=== PATIENT | female | born 1955 | race Caucasian/White ===

== ENCOUNTER → 2020-06-30 13:50 | Outpatient (CLI) | payer BC, SELFPAY ==
--- NOTE | ~2020-06-30 | MM_ITS ---
EXAMINATION: MM screening [facility] BI w livan HISTORY: Screening mammogram TECHNIQUE: Craniocaudal and mediolateral oblique 3-D tomosynthesis images were obtained and synthetic 2-D images were generated. CAD analysis was submitted and interpreted. COMPARISON: 06/18/2019 diagnostic right digital mammogram 05/17/2018, 05/15/2017 bilateral digital screening mammogram examinations 06/12/2019 bilateral digital screening mammogram BREAST PARENCHYMAL COMPOSITION: The breasts are heterogeneously dense, which may obscure small masses . FINDINGS: There is chronic bilateral asymmetry secondary to prior bilateral breast reduction surgery. There is suggestion of possible spiculated lesion in the posterior upper outer right breast (MLO Livan synthesis image 29/104). Diagnostic right mammogram and right breast ultrasound examination are recom mended. Interval suspicious mass or new architectural distortion or malignant calcification, skin thi ckening or retraction is evident. There are scattered bilateral benign calcifications, including some calcified fat necrosis. IMPRESSION: 1. Suggestion of possible spiculated lesion in posterior upper outer right breast 2. Diagnostic right mammogram and right breast ultrasound examination are recommended. BI-RADS Category 0: Incomplete: Needs additional imaging evaluation. Reviewed, dictated and finalized at location A. IMPRESSION: 1. Suggestion of possible spiculated lesion in posterior upper outer right [address] 2. Diagnostic right mammogram and right breast ultrasound examination are recom mended. BI-RADS Category 0: Incomplete: Needs additional imaging evaluation.
== END ==
PROVIDERS: PCP Nurse Practitioner Family; Visit Provider Nurse Practitioner
DX: Z12.31 Encounter for screening mammogram for malignant neoplasm of breast (principal); R92.8 Other abnormal and inconclusive findings on diagnostic imaging of breast
CPT/HCPCS: 77063; 77067

== ENCOUNTER → 2020-07-14 08:45 | Outpatient (CLI) | payer MEDICARE, SELFPAY ==
--- NOTE | ~2020-07-14 | MMUS_ITS ---
EXAMINATION: MM diagnostic mammo unilat RT, US breast RT complete HISTORY: Follow-up right breast calcifications and asymmetry TECHNIQUE: Additional 3-D tomosynthesis images of the right breast were performed and synthetic 2-D i mages were generated. CAD analysis was submitted and interpreted. High resolution right breast ultras ound was performed. COMPARISON: Comparison to multiple prior studies sequentially, with oldest reviewed study dated 05/11. BREAST PARENCHYMAL COMPOSITION: The breasts are heterogenously dense, which may obscure small masses FINDINGS: MAMMOGRAPHIC FINDINGS: There are persistent asymmetries in the upper outer quadrant of the right breast, although no discret e mass or definite architectural distortion is seen. There are clustered nonspecific calcifications i n the central aspect of the right breast, likely due to fat necrosis from prior breast reduction surg kaia. ULTRASOUND: Right breast ultrasound: At 10:00, 9 cm from the nipple, there is an irregular shaped hypoechoic lesion with posterior shadowi ng measuring approximately 6 x 4 mm with antiparallel configuration. No internal vascularity. There a re multiple simple and complicated cysts throughout the remainder of the right breast, largest at 6:0 0 measuring 1.5 cm. IMPRESSION: 1. Irregular shaped 6 mm right breast mass at 10:00, 9 cm from the nipple. 2. Ultrasound-guided right breast biopsy recommended. BI-RADS category 4, suspicious findings. Reviewed, dictated and finalized at location A. IMPRESSION: 1. Irregular shaped 6 mm right breast mass at 10:00, 9 cm from the nipple. 2. Ultrasound-guided right breast biopsy recommended. BI-RADS category 4, suspicious findings.
== END ==
PROVIDERS: Visit Provider Obstetrics & Gynecology Gynecology
DX: R92.8 Other abnormal and inconclusive findings on diagnostic imaging of breast (principal)
CPT/HCPCS: 76641; 77065

== ENCOUNTER 2022-04-08 08:00 | Outpatient (CLI) | payer MEDICARE, SELFPAY ==
--- NOTE | 2022-04-08 08:53 | ECG_ITS ---
Measurements Intervals Rico Rate: 64 P: -19 SD: 169 QRS: 24 QRSD: 80 T: -11 QT: 399 QTc: 412 Interpretive Statements SINUS RHYTHM LOW QRS VOLTAGE IN PRECORDIAL LEADS BORDERLINE ST-T WAVE ABNORMALITY- INFERIOR LEADS BASELINE ARTIFACT- AVL BORDERLINE ECG Electronically Signed On 04-08-2022 17:08:57 CDT by Seymour Hartley D.O.
[2022-04-08 09:27] LABS: Basophils Absolute Auto 0.1 K/mm3 (0.0-0.1); Basophils Percent Auto 1.2 % (0.2-1.2); Eosinophils Absolute Auto 0.1 K/mm3 (0-0.3); Eosinophils Percent Auto 2.8 % (0-4.4); Hematocrit 42.5 % (37.0-47.0); Hemoglobin 14.3 g/dL (12.0-15.0); Immature Granulocyte Absolute 0.01 K/mm3 (0.00-0.031); Immature Granulocyte Percent A 0.2 % (0-0.5); Lymphocytes Absolute Auto 1.25 K/mm3 (0.9-3.2); Mean Corpuscular HGB Conc 33.6 g/dl (32-36); Mean Corpuscular Hemoglobin 31.6 pg (26-34); Mean Platelet Volume 11.3 fl (7.4-10.4); Monocytes Absolute Auto 0.4 K/mm3 (0.1-0.6); Monocytes Percent Auto 8.8 % (2.6-8.5); Neutrophils Absolute Auto 3.1 K/mm3 (1.3-6.7); Platelet Count Result 186 k/mm3 (150-375); Red Blood Count 4.52 M/mm3 (4.2-5.4); Red Cell Distribution Width 13.5 % (11.5-14.5)
[2022-04-08 09:41] LABS: Albumin Level 4.5 g/dL (3.5-5.1); Anion Gap 7 mmol/L (8-16); Blood Urea Nitrogen 21 mg/dL (7-17); Calcium 9.4 mg/dL (8.4-10.2); Carbon Dioxide 31 mmol/L (22-30); Chloride 102 mmol/L (98-107); Estimated Glomerular Filt Rate 55; Glucose 114 mg/dL (65-110); Partial Thromboplastin Time 27.4 SECONDS (22.3-36.8); Potassium 4.7 mmol/L (3.4-5.0); Prothrombin Time 13.2 Seconds (11.1-14.7); Sodium 140 mmol/L (137-145)
[2022-04-08 09:43] LABS: Hemoglobin A1C 5.2 % (<5.7)
[2022-04-08 09:46] LABS: Urine Cotinine NEGATIVE
[2022-04-08 10:40] LABS: Appearance Urine Slightly Cloudy (Clear); Color Urine Yellow (Yellow); Glucose Urine UA Negative (Negative); Protein Urine Negative (Negative); Specific Grav Ur 1.025 (1.001-1.035)
[2022-04-08 10:41] LABS: Add Urine Microscopic? YES; Bilirubin Urine Negative (Negative); Blood Urine Negative (Negative); Ketones Urine Negative (Negative); Leukocyte Esterase Ur 1+ LEU/UL (Negative); Nitrate Urine Negative (Negative); Urobilinogen Urine 0.2 mg/dL (<2.0)
[2022-04-08 10:53] LABS: Bacteria Urine Trace /hpf; Mucus Urine Few /lpf; RBC Urine 0-2 /hpf (0-2); Squamous Epithelial Cell Urine Many /hpf (Few)
== END 2022-04-08 08:01 | disposition home or self-care (01) ==
LOC: ANHSURGERY 08:04
PROVIDERS: PCP Nurse Practitioner Family; Visit Provider Orthopaedic Surgery
DX: Z01.818 Encounter for other preprocedural examination (principal); M16.11 Unilateral primary osteoarthritis, right hip; Z51.81 Encounter for therapeutic drug level monitoring; Z79.899 Other long term (current) drug therapy
CPT/HCPCS: 80048; 80307; 81001; 82040; 83036; 85025; 85610; 85730; 87081; 87086; 87088; 93005

== ENCOUNTER 2022-04-26 00:02 | Day surgery (SDC) | payer MEDICARE, SELFPAY ==
[2022-04-08 08:11] VITALS: BMI 39.2
[2022-04-08 08:22] VITALS: BP 177/86; PULSE 71; RESP 16; TEMP 36.9; O2SAT 98
--- NOTE | 2022-04-08 08:30 | PC.NURSE ---
Addendum entered by Loretta Spears RN 04/08/22 08:46: HOLD DICLOFENAC 7 DAYS PRE-OP, LAST DOSE 04/19/22. Original Note: Report to the Outpatient Waiting Room, entrance under the radisson pavilion located off [facility], at time _9:00AM on date __04/26/22 . OR Time: __11:00AM . - You and your visitor will be asked a series of questions to screen for COVID 19 for your protection. - Only one visitor is allowed at this time. - The patient visitor is requested to leave or wait in car when not with patient. - A mask is required within the hospital. Patients may have clear liquids (water, carbonated beverages, clear teas, apple juice) until 3 hours prior to surgery with a maximum of 20 ounces. - No food from midnight until time of surgery - Infants may have breast milk until 4 hours before surgery, infant formula 6 hours prior to surgery. - Children will be allowed to drink immediately following surgery. If applicable, please bring a bottle or sippy cup to assist with drinking. Juice, water, soda, and popsicles are readily available. For infants on formula, please bring formula the day of surgery. Pacifiers are allowed. Take the following medications with a SIP of water the morning of surgery: NONE Medications to discontinue per physician ____HOLD ALL VITAMINS/SUPPLEMENTS 7 DAYS PRE-OP Date to take last dose 04/19/22 Please no make-up, nail greenlandic, hairspray, perfume, deodorant, or body powder the day of surgery. No jewelry (including any body piercings) or valuables the day of surgery, leave them at home. Please take a shower or bath the night before, or the morning of, surgery with an antibacterial soap. Wear comfortable, loose fitting clothing. Children are encouraged to wear pajamas. - Jewelry must be removed prior to entering the operating room. Rings and piercings that are not removed may be cut off. - The hospital will not accept responsibility for valuables. - Please leave all valuables, including medications, at home the day of surgery. *HIBICLENS PER DR NAGEL If you are going home after surgery, a licensed concrete mixer truck driver must drive you home. - NO public transportation without another adult. - We recommend that an adult stay with you for 24 hours following discharge. - We also recommend that you do not drive, make important decision, drink alcoholic beverages, or take any drugs that were not prescribed by your health care provider for at least 24 hours after your discharge time. For Pediatric surgeries, we recommend two adults accompany the child home (only one inside the building at this time). Follow any additional instructions given to you from your surgeon. If you or anyone in your household have experienced Covid symptoms in the past week, please notify your surgeon or the nurse liaison at the phone number below for possible testing. Telephone instructions given to __PATIENT and asked if any additional questions and then verbalized understanding. Patient advised to call surgeon office or pre surgery nurse liaison [phone] if any additional questions.
--- NOTE | 2022-04-25 13:05 | WPDANESEPPF ---
Anes - Initial Pre Proc Eval Procedure: Operation Date: 04/26/22 07:30 Proposed Procedures p Right Total Hip Arthroplasty - Mukesh Silva MD Date/Time: 04/25/22 13:05 Surgeon: Mukesh Silva MD Pre Op Diagnosis: Rt Hip DJD Patient Data Age: 66 Gender: F Height: 1.71 m Weight: 115.2 kg Last Vital Signs Temp 36.9 C 04/08/22 08:22 Pulse 71 04/08/22 08:22 Resp 16 04/08/22 08:22 BP 177/86 H 04/08/22 08:22 Pulse Ox 98 04/08/22 08:22 O2 Del Method Room Air 04/08/22 08:22 Allergies Allergy/AdvReac Type Severity Reaction Status Date / Time No Known Drug Allergies Allergy Unknown Unverified 04/25/22 09:41 Home Medications Medication Instructions Recorded Confirmed Type diclofenac sodium 75 mg 75 mg PO BID 03/10/22 04/08/22 History tablet,delayed release cetirizine 10 mg capsule (Zyrtec) 10 mg PO DAILY PRN Sinus Symptoms 04/08/22 04/08/22 History alcaraz juice (Dark Alcaraz 1 ea PO BID 04/08/22 04/08/22 History Concentrate oral concentrate) ergocalciferol (vitamin D2) 1,250 1 cap PO DAILY 04/08/22 04/08/22 History mcg (50,000 unit) capsule estradiol 0.5 mg tablet 0.5 tablet PO DAILY 04/08/22 04/08/22 History hydrochlorothiazide 12.5 mg capsule 1 cap PO QAM 04/08/22 04/08/22 History losartan 50 mg tablet 1 tablet PO QAM 04/08/22 04/08/22 History magnesium oxide 400 mg PO DAILY 04/08/22 04/08/22 History medroxyprogesterone 2.5 mg tablet 1 tablet PO DAILY 04/08/22 04/08/22 History sulfamethoxazole 800 1 tablet PO Q12H #20 tabs 04/12/22 Rx mg-trimethoprim 160 mg tablet (Bactrim DS) Results Review: All pre-operative results and documents have been reviewed as part of the pre-operative evaluation. [facility] Past Medical History Medical History (Updated 04/25/22 @ 13:07 by Jaime Koch MD) Hip pain HTN (hypertension) Obesity Osteoarthritis Vision loss Surgical History Surgical History (Updated 04/06/22 @ 09:51 by Shannon Maddox MA) History of toe surgery Zuleyma Mazariegos, Dr. Steven Family History Family History Mother Carcinoma of colon Other Cerebrovascular accident Family history of arthritis Family history of malignant neoplasm Social History Social History (Updated 03/10/22 @ 13:06 by Thalia Shook MA) Smoking status: Never smoker Alcohol intake: current Substance use: never Additional living arrangements comments: [facility] Additional occupation/education comments: [employer] Gender identity (if verbalized by the patient): Female Spiritual care concerns: No Anes - Eval Final PreProcedure Day of Procedure 04/25/22 13:05 Patient weight: obese Heart: regular rate and rhythm Lungs: clear to auscultation and normal air movement Airway: Mallampati scale class II Neurological: alert and oriented Last oral intake: >/= 8 hours ASA classification: III Emergent: no Anesthetic plan: proceed Anesthesia type and monitoring: general ETT Results Review: All pre-operative results and documents have been reviewed as part of the pre-operative evaluation. Informed Consent: The patient's anesthetic plan and its attendant risks and benefits were discussed with the patient/family/POA. Questions were solicited and answers provided to the satisfaction of the patient/family/POA.
[2022-04-26] VITALS (13 sets, daily range): BP systolic 113–152; BP diastolic 48–73; PULSE 57–80; RESP 12–20; TEMP 36.2–37.3; O2SAT 95–100
--- NOTE | ~2022-04-26 | XR_ITS ---
EXAMINATION: XR hip RT min 2V DATE: 04/26/2022 10:50 INDICATION: Right total hip arthroplasty. Postop. TECHNIQUE: 2 views of right hip were obtained. COMPARISON: Right hip radiographs 03/10/2022 FINDINGS: There is a total right hip arthroplasty in near-anatomic alignment. No fracture. There is g as in the soft tissues, consistent with recent surgery. There is severe lumbar spondylosis. IMPRESSION: 1. Total right hip arthroplasty in near-anatomic alignment. Reviewed, dictated and finalized at location B.
[2022-04-26] MEDS: ACETAMINOPHEN 500 MG TABLET 1000 MG PO (06:29)
[2022-04-26] MEDS: LACTATED RINGERS 1,000 ML 30 ML IV CONT ×2 (06:35→10:33)
--- NOTE | 2022-04-26 06:57 | SUR.PREOP ---
0657-TRANEXAMIC ACID TO BE SENT TO OR VS STARTED IN PREOP PER DR. SALEH REQUEST.
--- NOTE | 2022-04-26 07:11 | PM.CNOR ---
Assessment and Plan Assessment and plan (1) Osteoarthritis: Code(s): M19.90 - Unspecified osteoarthritis, unspecified site Status: Acute (2) Degenerative joint disease (DJD) of hip: Qualifiers: Osteoarthritis type: primary Laterality: right Qualified Code(s): M16.11 - Unilateral primary osteoarthritis, right hip Code(s): M16.9 - Osteoarthritis of hip, unspecified Status: Acute Plan ALY IS HERE FOR RIGHT TOTAL HIP REPLACEMENT. DISCUSSED NONOPERATIVE AND OPERATIVE TREATMENT OPTIONS WITH THE PATIENT. THE PATIENT'S QUESTIONS WERE ANSWERED. THE PATIENT DESIRES OPERATIVE TREATMENT. DISCUSSED ____R THA . RISKS OF SURGERY INCLUDING BUT NOT LIMITED TO NEUROVASCULAR DAMAGE, WOUND COMPLICATIONS, BLOOD CLOT, PULMONARY EMBOLUS, STROKE, CA, ANESTHETIC RISKS UP TO AND INCLUDING WERE REVIEWED. CONTINUED PAIN AND POSSIBLE DYSFUNCTION WERE EXPLAINED. NO GUARANTEES WERE OFFERED. THE PATIENT UNDERSTANDS AND WISHES TO PROCEED. History of Present Illness HPI Consult date: 04/26/22 Chief complaint: Rt Hip DJD Narrative: Pt presents with Right hip pain that has been chronic, nontraumatic. Her pain is dependent on her activity. She states when she is lying on her back she has anterior hip/groin pain which radiates into the thigh. When she is ambulating her pain is diffuse, throughout the joint. She has frequent night pain, as she is only able to lay her back when then causes groin pain. She is not ambulating with AD. She takes Diclofenac tablets, which do relieve her pain. Pt has h/o Left LATHA in 2016 Involved hip: right Onset: gradual Character: aching, weakness and other (catching) Timing of pain: intermittent Exacerbated by: weight bearing, squatting, running, rotational activities and prolonged activity Relieved by: NSAIDs, ice and rest Associated symptoms: Reports leg pain at rest History of occupational/recreational activity with repetitive movement: No History of prior hip injury: No Review of Systems Review of Systems: All systems reviewed & are unremarkable except as noted in HPI and below Constitutional: Constitutional: Reports no additional constitutional complaints Eyes: Eyes: Reports no additional eye complaints ENT: Reports system reviewed and no additional complaints, except as documented Respiratory: Respiratory: Reports no additional respiratory complaints Gastrointestinal: Gastrointestinal: Reports no additional gastrointestinal complaints Musculoskeletal: Musculoskeletal: Reports no additional musculoskeletal complaints Integumentary/Breasts: Skin/Breast: Reports system reviewed and no additional complaints, except as docu Neurologic: Reports system reviewed and no additional complaints, except as documented Psychiatric: Psychiatric: Reports no additional psychiatric complaints Endocrine: Endocrine: Reports no additional endocrine complaints Hematologic/Lymphatic: Hematologic/Lymphatic: Reports no additional hematologic/lymphatic complaints Allergic/Immunologic: Allergic/Immunologic: Reports no additional allergic/immunologic complaints PMFSH Past Medical History Medical History Hip pain HTN (hypertension) Obesity Osteoarthritis Vision loss Surgical History Surgical History History of toe surgery Zuleyma Mazariegos, Dr. Steven Family History Family History Mother Carcinoma of colon Other Cerebrovascular accident Family history of arthritis Family history of malignant neoplasm Social History Social History Smoking status: Never smoker Alcohol intake: current Substance use: never Living arrangements: with family Additional living arrangements comments: HUSB Additional occupation/education comments: [employer] Gender kelly
--- NOTE | 2022-04-26 07:17 | WPDHPUPDATE1 ---
History and Physical Update Update Date/Time: 04/26/22 07:17 History and Physical has been reviewed, including an updated exam of the patient. There are NO changes in the patient's condition. Risks, benefits, and alternatives have been discussed and questions answered. Patient agrees to proceed with procedure.
--- NOTE | 2022-04-26 07:20 | WPDANESEPPF ---
Anes - Initial Pre Proc Eval Procedure: Operation Date: 04/26/22 07:30 Proposed Procedures p Right Total Hip Arthroplasty - Mukesh Silva MD Date/Time: 04/26/22 07:20 Surgeon: Mukesh Silva MD Pre Op Diagnosis: Rt Hip DJD Patient Data Age: 66 Gender: F Height: 1.71 m Weight: 111.8 kg Last Vital Signs Temp 97.1 F L 04/26/22 06:15 Pulse 77 04/26/22 06:15 Resp 20 04/26/22 06:15 BP 133/69 04/26/22 06:15 Pulse Ox 98 04/26/22 06:15 O2 Del Method Room Air 04/26/22 06:15 Allergies Allergy/AdvReac Type Severity Reaction Status Date / Time No Known Allergies Allergy Verified 04/26/22 06:13 Home Medications Medication Instructions Recorded Confirmed Type diclofenac sodium 75 mg 75 mg PO BID 03/10/22 04/26/22 History tablet,delayed release cetirizine 10 mg capsule (Zyrtec) 10 mg PO DAILY PRN Sinus Symptoms 04/08/22 04/26/22 History alcaraz juice (Dark Alcaraz 1 ea PO BID 04/08/22 04/26/22 History Concentrate oral concentrate) ergocalciferol (vitamin D2) 1,250 1 cap PO DAILY 04/08/22 04/26/22 History mcg (50,000 unit) capsule estradiol 0.5 mg tablet 0.5 tablet PO DAILY 04/08/22 04/26/22 History hydrochlorothiazide 12.5 mg capsule 1 cap PO QAM 04/08/22 04/26/22 History losartan 50 mg tablet 1 tablet PO QAM 04/08/22 04/26/22 History magnesium oxide 400 mg PO DAILY 04/08/22 04/26/22 History medroxyprogesterone 2.5 mg tablet 1 tablet PO DAILY 04/08/22 04/26/22 History sulfamethoxazole 800 1 tablet PO Q12H #20 tabs 04/12/22 04/26/22 Rx mg-trimethoprim 160 mg tablet (Bactrim DS) Laboratory Tests 04/26/22 06:39 Blood Type O Negative Antibody Screen Pending Patient hx anesthesia problems: post op nausea/vomiting Family hx anesthesia problems: none Results Review: All pre-operative results and documents have been reviewed as part of the pre-operative evaluation. [facility] Past Medical History Medical History Hip pain HTN (hypertension) Obesity Osteoarthritis Vision loss Surgical History Surgical History History of toe surgery Yair, Zuleyma, Dr. Steven Family History Family History Mother Carcinoma of colon Other Cerebrovascular accident Family history of arthritis Family history of malignant neoplasm Social History Social History Smoking status: Never smoker Alcohol intake: current Substance use: never Living arrangements: with family Additional living arrangements comments: HUSB Additional occupation/education comments: [employer] Gender identity (if verbalized by the patient): Female Spiritual care concerns: No Anes - Eval Final PreProcedure Day of Procedure 04/26/22 07:20 Patient weight: obese Heart: regular rate and rhythm Lungs: clear to auscultation Airway: Mallampati scale class III Neurological: alert and oriented Last oral intake: >/= 8 hours ASA classification: III Emergent: no Anesthetic plan: proceed Anesthesia type and monitoring: general ETT and standard monitoring Results Review: All pre-operative results and documents have been reviewed as part of the pre-operative evaluation. Informed Consent: The patient's anesthetic plan and its attendant risks and benefits were discussed with the patient/family/POA. Questions were solicited and answers provided to the satisfaction of the patient/family/POA.
[2022-04-26] MEDS: SCOPOLAMINE 1.5 MG PATCH TRANSDERM (07:26)
[2022-04-26] MEDS: ceFAZolin 2 GM/D5W 50 ML 2 GM/50 ML BAG IVPB ×3 (07:29→22:12)
[2022-04-26] MEDS: TRANEXAMIC ACID 1,000MG/ISO100 1,000 MG/100 ML BAG 200 MG IVPB (07:29)
[2022-04-26] MEDS: TRANEXAMIC ACID 1,000 MG/10 ML AMPUL 1000 MG IV PUSH (09:25)
--- NOTE | 2022-04-26 11:02 | W.PM.PROC2 ---
Procedure Note - Detailed Date of Procedure 04/26/22 Pre-op Diagnosis Rt Hip DJD Post-op Diagnosis Same Procedure Performed R LATHA Surgeon Mukesh Silva MD Anesthesia General Description of Procedure THE PATIENT WAS TAKEN TO THE OPERATING ROOM IN STABLE CONDITION AND WAS PLACED IN THE LATERAL DECUBITUS AND THE RIGHT LOWER EXTREMITY WAS PREPPED AND DRAPED IN THE STERILE FASHION. INCISION WAS MADE IN THE POSTERIOR LATERAL SIDE OF THE HIP, DOWN TO THE FASCIA LAYER. THE FASCIA WAS INCISED. THE HIP WAS EXPOSED. THE SHORT EXTERNAL ROTATORS WERE EXPOSED. THE SCIATIC NERVE WAS IDENTIFIED. THERE WAS A HIGH BIFURCATION OF THE NERVE. INCISION WAS MADE THROUGH THE SORT EXTERNAL ROTATORS AND THE CAPSULE OF THE HIP JOINT. THE HIP WAS DISLOCATED. AN OSTEOTOMY WAS MADE TO THE FEMORAL NECK ABOUT 1 CM PROXIMAL TO THE LESSER TROCHANTER. THE ACETABULUM WAS EXPOSED. THERE WAS SEVERE DJD SEEN. BEGINNING WITH A 44 REAMER THE ACETABULUM WAS REAMED TO 51 MM. A 51 MM TRIAL WAS PLACED IN 35 DEG OF ABDUCTION AND ANTEVERSION WAS IN ALIGNMENT WITH THE TRANS ACETABULAR LIGAMENT. THE FIT WAS EXCELLENT. THE TRIAL WAS REMOVED. A 52 MM BIOMET G7 COMPONENT WAS THEN TAPPED IN TO PLACE IN 35 DEG OF ABDUCTION AND ANTEVERSION IN ALIGNMENT WITH THE TRANSVERSE ACETABULAR LIGAMENT. THE FIT WAS EXCELLENT. THE ACETABULAR LINER WAS PLACED AND CHECKED FOR STABILITY. NEXT THE FEMUR WAS PREPARED WITH INITIAL CANAL FINDER THEN SEQUENTIAL BROACHING WITH A TAPERLOC HIP SYSTEM, UNTIL A 9 BROACH FIT WELL IN 15 OF ANTEVERSION. A +0 STANDARD OFFSET NECK WITH 36 MM HEAD TRIAL WAS PLACED. THE SHUCK TEST WAS EXCELLENT AND THE STABILITY IN FLEXION AND ROTATION WAS EXCELLENT. LEG LENGTHS WERE GROSSLY EQUAL. TRIALS WERE REMOVED. A BIOMET TAPERLOC 9 STEM WAS PLACED WITH A STANDARD OFFSET NECK THE FIT WAS EXCELLENT IN 15 DEG OF ANTEVERSION. A +0 CERAMIC 36 MM FEMORAL HEAD WAS PLACED. THE HIP WAS TRIALED AND THE STABILITY WAS EXCELLENT WERE THE LEG LENGTHS AND THE SHUCK TEST. THE WOUND WAS IRRIGATED WITH STERILE BETADINE AND WATER FOR 3 MIN. THEN WASHED AGAIN. THE CAPSULE AND THE EXTERNAL ROTATORS WERE APPROXIMATED WITH NUMBER 1 VICRYL. THE FASCIA WITH No 2 QUIL AND THE SUB CUTANEOUS LAYER WITH 2-0 ABSORBABLE SUTURE WITH A RUNNING 3-0 SUBCUTICULAR LAYER WELL. DERMABOND WAS PLACED AND STERILE DRESSING WAS APPLIED. PATIENT WAS PLACED BACK ON TO THE SUPINE POSITION AND WAS EXTUBATED Estimated Blood Loss -200.0 Complications No immediate complications Condition Stable Disposition PACU
[2022-04-26] MEDS: fentaNYL CITRATE INJ (*CRX) 100 MCG/2 ML VIAL 25 MCG IV PUSH (11:03)
--- NOTE | 2022-04-26 12:02 | ADMGEN ---
This patient, Lakesha Dong, was admitted to Medical Room 245-01 via bed from surgery. Patient/family oriented to hospital policies and general routines including ID bracelet, bed and alarms, visiting hours, pain management, procedures, bathroom and other care routines, personal items, smoking policy, room service/diet, and visiting hours. Information on how to activate the Rapid Response Team has been discussed. Patient/Family are encouraged to report perceived risks to care and to ask questions if they do not understand what they are told or what they should do.
[2022-04-26] MEDS: KETOROLAC 15 MG/ML VIAL (*BKC) IV PUSH ×2 (16:00→22:07)
[2022-04-26] MEDS: HYDROcodone/acetaminophen (*CRX) 7.5-325 MG TABLET 1 TAB PO (18:42)
[2022-04-26] MEDS: FAMOTIDINE 20 MG TABLET PO (22:07)
[2022-04-26] MEDS: ASPIRIN 325 MG ENTERIC TABLET PO (22:07)
[2022-04-27 00:03] VITALS: BP 92/52; PULSE 72; RESP 20; TEMP 35.8; O2SAT 95
[2022-04-27 01:06] VITALS: BP 102/52
[2022-04-27] MEDS: KETOROLAC 15 MG/ML VIAL (*BKC) IV PUSH ×2 (04:00→09:02)
[2022-04-27 04:07] VITALS: BP 112/52; PULSE 72; RESP 20; TEMP 36.3; O2SAT 97
[2022-04-27 05:36] LABS: Basophils Percent Auto 0.3 % (0.2-1.2); Eosinophils Percent Auto 0.2 % (0-4.4); Hematocrit 32.8 % (37.0-47.0); Hemoglobin 10.9 g/dL (12.0-15.0); Immature Granulocyte Absolute 0.08 K/mm3 (0.00-0.031); Immature Granulocyte Percent A 0.6 % (0-0.5); Lymphocytes Absolute Auto 1.41 K/mm3 (0.9-3.2); Lymphocytes Percent Auto 11.3 % (18.3-44.2); Mean Corpuscular HGB Conc 33.2 g/dl (32-36); Mean Corpuscular Hemoglobin 31.5 pg (26-34); Mean Corpuscular Volume 94.8 fl (80-100); Mean Platelet Volume 11.9 fl (7.4-10.4); Monocytes Absolute Auto 1.4 K/mm3 (0.1-0.6); Neutrophils Absolute Auto 9.6 K/mm3 (1.3-6.7); Neutrophils Percent Auto 76.6 % (45.5-73.1); Platelet Count Result 191 k/mm3 (150-375); Red Blood Count 3.46 M/mm3 (4.2-5.4); Red Cell Distribution Width 13.6 % (11.5-14.5); White Blood Count 12.5 K/mm3 (4.5-10.0)
[2022-04-27 05:44] LABS: Anion Gap 5 mmol/L (8-16); Blood Urea Nitrogen 20 mg/dL (7-17); Calcium 7.8 mg/dL (8.4-10.2); Carbon Dioxide 27 mmol/L (22-30); Chloride 98 mmol/L (98-107); Estimated CRCL calculation 64 ml/min; Estimated Glomerular Filt Rate 55; Glucose 126 mg/dL (65-110); Potassium 3.6 mmol/L (3.4-5.0); Sodium 130 mmol/L (137-145)
[2022-04-27] MEDS: ceFAZolin 2 GM/D5W 50 ML 2 GM/50 ML BAG IVPB (06:07)
--- NOTE | 2022-04-27 08:41 | P.PNAN_ITS ---
Anes - Prog Note Post-Op Date/Time: 04/27/22 08:41 Cardiovascular status: normal Respiratory status: normal Airway patency: baseline Mental status: baseline Post-Op hydration status: normal Vital Signs: Last Vital Signs Temp 36.3 C L 04/27/22 04:07 Pulse 72 04/27/22 04:07 Resp 20 04/27/22 04:07 BP 112/52 L 04/27/22 04:07 Pulse Ox 97 04/27/22 04:07 O2 Del Method Room Air 04/26/22 13:36 O2 Flow Rate 6 04/26/22 10:50 Pain Score (VAS): 3 I/O: Intake & Output 04/26/22 04/27/22 04/27/22 23:59 07:59 15:59 Intake Total 340 440 Output Total 0 Balance 340 440 Laboratory Tests 04/27/22 04:55 04/27/22 04:55 04/27/22 04/27/22 04:55 04:55 WBC 12.5 H RBC 3.46 L Hgb 10.9 L D Hct 32.8 L MCV 94.8 MCH 31.5 MCHC 33.2 RDW 13.6 Plt Count 191 MPV 11.9 H Immature Gran % (Auto) 0.6 H Neut % (Auto) 76.6 H Lymph % (Auto) 11.3 L [place] % (Auto) 11.0 H Eos % (Auto) 0.2 Baso % (Auto) 0.3 Lymph # (Auto) 1.41 [place] # (Auto) 1.4 H Eos # (Auto) 0.0 Baso # (Auto) 0.0 Abs Immat Gran (auto) 0.08 H Absolute Neuts (auto) 9.6 H Absolute Nucleated RBC 0.0 Nucleated RBC % 0.0 Sodium 130 L Potassium 3.6 Chloride 98 Carbon Dioxide 27 Anion Gap 5 L BUN 20 H Creatinine 1.00 Estim Creat Clear Calc 64 Estimated GFR 55 L Glucose 126 H Calcium 7.8 L Post-procedural complaints: none Patient Feedback: Patient satisfied with anesthetic care.
[2022-04-27] MEDS: ASPIRIN 325 MG ENTERIC TABLET PO (09:01)
[2022-04-27] MEDS: MAGNESIUM OXIDE 400 MG TABLET PO (09:02)
[2022-04-27] MEDS: LOSARTAN POTASSIUM 50 MG TABLET PO (09:02)
[2022-04-27] MEDS: FAMOTIDINE 20 MG TABLET PO (09:02)
[2022-04-27] MEDS: hydroCHLOROthiazide 12.5 MG CAPSULE PO (09:02)
[2022-04-27] MEDS: SENNA/DOCUSATE SODIUM TABLET 2 TAB PO (09:02)
[2022-04-27] MEDS: polyethylene glycoL 3350 17 GM POWD.PACK PO (09:02)
[2022-04-27 09:06] VITALS: BP 104/56; PULSE 68; RESP 16; TEMP 36.5; O2SAT 100
[2022-04-27 10:30] VITALS: BP 103/58; PULSE 74; RESP 20; TEMP 36.2; O2SAT 98
[2022-04-27 14:28] VITALS: BP 102/53; PULSE 67; RESP 18; TEMP 36.4; O2SAT 100
--- NOTE | 2022-04-27 15:36 | PM.PNORT ---
Progress Note: A&P Assessment and Plan (1) Degenerative joint disease (DJD) of hip: Qualifiers: Osteoarthritis type: primary Laterality: right Qualified Code(s): M16.11 - Unilateral primary osteoarthritis, right hip Code(s): M16.9 - Osteoarthritis of hip, unspecified Status: Acute Assessment and Plan: POD 1 DOING WELL AND HAS PASSED PT. HGB IS STABLE. SHE IS WANTING TO BE DISCHARGED TO HOME. SHE WILL F/U IN 3 WEEKS. (2) History of hip replacement: Qualifiers: Laterality: left Qualified Code(s): Z96.642 - Presence of left artificial hip joint Code(s): Z96.649 - Presence of unspecified artificial hip joint Status: Acute Subjective Subjective Date/Time Seen: 04/27/22 15:36 POD 1 DOING WELL. NO CALF PAIN. DOING WELL WITH PT Review of Systems Review of Systems: POD 1 DOING WELL. NO CALF PAIN. 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 Objective Data Vital Signs Vital Signs: Vital Signs - 24 hr 04/26/22 18:12 04/26/22 20:08 04/27/22 00:03 Temperature 36.9 C 37.3 C 35.8 C L Pulse Rate 80 79 72 Respiratory Rate 16 20 20 Blood Pressure 150/71 H 121/48 L 92/52 L Pulse Oximetry 99 98 95 Oxygen Delivery 04/27/22 01:06 04/27/22 04:07 04/27/22 09:06 Temperature 36.3 C L 36.5 C Pulse Rate 72 68 Respiratory Rate 20 16 Blood Pressure 102/52 L 112/52 L 104/56 L Pulse Oximetry 97 100 Oxygen Delivery 04/27/22 09:10 04/27/22 10:30 04/27/22 14:28 Temperature 36.2 C L 36.4 C L Pulse Rate 74 67 Respiratory Rate 20 18 Blood Pressure 103/58 L 102/53 L Pulse Oximetry 98 100 Oxygen Delivery Room Air Intake/Output Intake/Output: Intake & Output 04/24/22 04/25/22 04/26/22 04/27/22 23:59 23:59 23:59 23:59 Intake Total 840 920 Output Total 0 Balance 840 920 Meds/Results Medications: Active Medications Generic Name Dose Route Start Last Admin Trade Name Freq PRN Reason Stop Dose Admin Acetaminophen 650 mg 04/26/22 11:55 Acetaminophen 325 Mg Tablet PO Q6H PRN Mild Pain (1-3) or Fever Hydrocodone Bitart/Acetaminophen 1 tab 04/26/22 11:55 04/26/22 18:42 Hydrocodone/Acetaminophen (*Crx) 7.5-325 Mg Tablet PO 1 tab Q3H PRN Administration Pain Rated 4-6 Aspirin 325 mg 04/26/22 21:00 04/27/22 09:01 Aspirin 325 Mg Enteric Tablet PO 325 mg Q12HR DEBORAH Administration Diazepam 5 mg 04/26/22 11:55 Diazepam (*Crx) 5 Mg Tablet PO Q6H PRN Anxiety/Muscle Spasm Ergocalciferol 50,000 unit 04/28/22 09:00 Ergocalciferol 50,000 Unit Capsule PO Th@0900 DEBORAH Famotidine 20 mg 04/26/22 21:00 04/27/22 09:02 Famotidine 20 Mg Tablet PO 20 mg Q12HR DEBORAH Administration Hydrochlorothiazide 12.5 mg 04/27/22 09:00 04/27/22 09:02 Hydrochlorothiazide 12.5 Mg Capsule PO 12.5 mg QAM DEBORAH Administration Hydroxyzine HCl 50 mg 04/26/22 11:55 Hydroxyzine Hcl 25 Mg Tablet PO Q4H PRN Itching Ketorolac Tromethamine 15 mg 04/26/22 22:00 04/27/22 09:02 Ketorolac 15 Mg/Ml Vial (*Bkc) IV PUSH 04/27/22 16:01 15 mg Q6H DEBORAH Administration Loratadine 10 mg 04/26/22 11:55 Loratadine 10 Mg Tablet PO DAILY PRN Sinus Symptoms Losartan Potassium 50 mg 04/27/22 09:00 04/27/22 09:02 Losartan Potassium 50 Mg Tablet PO 50 mg QAM DEBORAH Administration Magnesium Oxide 400 mg 04/27/22 09:00 04/27/22 09:02 Magnesium Oxide 400 Mg Tablet PO 400 mg DAILY DEBORAH Administration Morphine Sulfate 3 mg 04/26/22 11:55 Morphine Sulfate (*Crx) 4 Mg/Ml Inj IV PUSH Q3H PRN Pain Rated 7-10 Naloxone HCl 0.1 mg 04/26/22 11:55 Naloxone Hcl 0.4 Mg/Ml Vial IV PUSH Q2M PRN Opiate Reversal Ondansetron HCl 4 mg 04/26/22 11:55 Ondansetron Inj 4 Mg/2 Ml Vial IV PUSH Q4H PRN Nausea And Vomiting Polyethylene Glycol 17 gm 04/27/22 09:00 04/27/22 09:02 Polyet
--- NOTE | 2022-04-27 15:41 | PM.DS ---
DS: Admitting Diagnosis Discharge Date 04/27/22 Admitting Diagnosis R HIP DJD DS: Discharge Diagnosis Discharge Diagnosis (1) History of hip replacement: Qualifiers: Laterality: left Qualified Code(s): Z96.642 - Presence of left artificial hip joint Code(s): Z96.649 - Presence of unspecified artificial hip joint Status: Acute DS: Summary Hospital Course Reason for hospitalization: R LATHA Hospital Course: PATIENT WAS ADMITTED S/P TOTAL HIP ARTHROPLASTY FOR POSTOPERATIVE MEDICAL MANAGEMENT, PAIN CONTROL AND MOBILIZATION WITH PHYSICAL AND OCCUPATIONAL THERAPY. THE PATIENT PROGRESSED WELL WITH PT/OT. LABS AND VITALS REMAINED STABLE AND PAIN WELL CONTROLLED. THE PATIENT HAS BEEN CLEARED TO BE DISCHARGED HOME. FOLLOW UP APPOINTMENT SCHEDULED. DISCHARGE INSTRUCTIONS DISCUSSED AT LENGTH WITH THE PATIENT. MEDICATIONS REVIEWED. Time spent discussing smoking cessation with patient: 3 to 10 minutes Status at Discharge Functional status at discharge: uses cane/walker Time Spent with Patient Time attestation: Total time spent providing and/or coordinating discharge services: DS: Data Data Completed and Pending Labs on day of discharge: Labs from last 24 hours 04/27/22 04/27/22 04:55 04:55 WBC 12.5 H RBC 3.46 L Hgb 10.9 L D Hct 32.8 L MCV 94.8 MCH 31.5 MCHC 33.2 RDW 13.6 Plt Count 191 MPV 11.9 H Immature Gran % (Auto) 0.6 H Neut % (Auto) 76.6 H Lymph % (Auto) 11.3 L Crockett % (Auto) 11.0 H Eos % (Auto) 0.2 Baso % (Auto) 0.3 Lymph # (Auto) 1.41 Crockett # (Auto) 1.4 H Eos # (Auto) 0.0 Baso # (Auto) 0.0 Abs Immat Gran (auto) 0.08 H Absolute Neuts (auto) 9.6 H Absolute Nucleated RBC 0.0 Nucleated RBC % 0.0 Sodium 130 L Potassium 3.6 Chloride 98 Carbon Dioxide 27 Anion Gap 5 L BUN 20 H Creatinine 1.00 Estim Creat Clear Calc 64 Estimated GFR 55 L Glucose 126 H Calcium 7.8 L Procedures/Treatments: R LATHA Discharge Plan Discharge Patient Disposition: Home Health Service Discharge Instructions: Remove the Scopolamine patch that was placed behind your ear in 72 hours or less. Wash your hands after touching. Per Care Coordination: [facility] will contact you prior to their first visit. [facility] can be contacted at [phone]. [facility] will follow for RN and PT/OT eval and treat. Patient Instructions: Antibiotic Form, Total Hip Replacement (DC) Stand Alone Forms: General Discharge Information, General Discharge Instructions Follow-up/Referrals: Mukesh Silva MD [Physician] - 3 Weeks Discharge Medications: New aspirin 325 mg Tablet,Delayed Release (Dr/Ec) 325 mg PO Q12HR 14 Days Qty: 28 0RF oxycodone-acetaminophen [Percocet] 5-325 mg tablet 1 tablet PO Q6H PRN (Reason: pain) Qty: 50 0RF Continued diclofenac sodium 75 mg tablet,delayed release (DR/EC) 75 mg PO BID estradiol 0.5 mg tablet 0.5 tablet PO DAILY losartan 50 mg tablet 1 tablet PO QAM medroxyprogesterone 2.5 mg tablet 1 tablet PO DAILY hydrochlorothiazide 12.5 mg capsule 1 cap PO QAM ergocalciferol (vitamin D2) 1,250 mcg (50,000 unit) capsule 1 cap PO DAILY Zyrtec 10 mg Capsule 10 mg PO DAILY PRN (Reason: Sinus Symptoms) magnesium oxide 400 mg magnesium Capsule 400 mg PO DAILY Dark Alcaraz Concentrate Concentrate 1 ea PO BID Quality VTE Prophylaxis VTE prophylaxis: pharmacologic ordered
[2022-04-27] MEDS: HYDROcodone/acetaminophen (*CRX) 7.5-325 MG TABLET 1 TAB PO (16:10)
== END 2022-04-27 16:27 | disposition home health service (06) ==
LOC: ANHSURGERY 07:28 → ANH2MED 11:57
PROVIDERS: PCP Nurse Practitioner Family; Visit Provider Orthopaedic Surgery
PROC: (CPT 27130; principal; 2022-04-26 07:30)
DX: M16.11 Unilateral primary osteoarthritis, right hip (principal); I10 Essential (primary) hypertension; E66.9 Obesity, unspecified; Z68.38 Body mass index [BMI] 38.0-38.9, adult
CPT/HCPCS: 27130; 36415; 73502; 80048; 85025; 86850; 86900; 86901; 97110; 97161; 97165; 97530; 97535; A9270; C1776; J0171; J0690; J1100; J1170; J1885; J2250; J2270; J2370; J2405; J2704; J2710; J2795; J3010; J7120

== ENCOUNTER 2024-07-11 09:19 | Outpatient (CLI) | payer MEDICARE, SELFPAY ==
--- NOTE | ~2024-07-11 | US_ITS ---
EXAMINATION: US abdomen limited DATE: 07/11/2024 10:06 INDICATION: Abnormal levels of other serum enzymes. TECHNIQUE: Multiple grayscale and Doppler ultrasound images of the abdomen were obtained. COMPARISON: None FINDINGS: The visualized portions of the head, body, and tail of the pancreas are normal. The liver i s normal without focal lesion. No liver surface nodularity. There is normal flow in main portal vein. The gallbladder is absent. The common duct is normal and measures 5 mm. IMPRESSION: 1. Normal right upper quadrant ultrasound status post cholecystectomy. Reviewed, dictated and finalized at location A.
== END 2024-07-11 09:20 | disposition home or self-care (01) ==
LOC: ANHIMG 09:22
PROVIDERS: PCP Family Medicine; Visit Provider Family Medicine
DX: R74.8 Abnormal levels of other serum enzymes (principal); Z90.49 Acquired absence of other specified parts of digestive tract
CPT/HCPCS: 76705

== ENCOUNTER 2024-12-29 10:42 | Emergency (ER) | payer MEDICARE, SELFPAY ==
--- NOTE | ~2024-12-29 | XR_ITS ---
CHEST RADIOGRAPH, PA AND LATERAL CLINICAL HISTORY: cough, wheezing . COMPARISON: None TECHNIQUE: PA and lateral views of the chest. FINDINGS The cardiomediastinal silhouette is unremarkable. The lungs are clear. Visualized osseous structures and soft tissues are unremarkable. IMPRESSION: No focal infiltrate or effusion. Reviewed, dictated and finalized at location A. UTER SYSTEM TECHNICIAN
--- OUTSIDE RECORDS SUMMARY | 2024-12-29 10:44 | XMS_ITS | Clinical Summary ---
Author Organization [facility] Address [address] [place] [address] Phone Care Team Providers Care Meat Carver Name Role Phone Unavailable Primary Care Provider Unavailabl e Social History Tobacco Use Types Packs/Day Years Used Date Smoking Tobacco: Never Assessed Comments Unknown Sex and Gender Information Value Date Recorded Sex Assigned at Not on file Legal Sex Female 8:52 AM PRODUCT COMMUNICATIONS MANAGER Gender Identity Not on file Sexual Orientation Not on file Plan of Treatment Health Maintenance Due Date Last Done Comments DEXA Bone Density 1955 Hepatitis C Virus (HCV) Screening 1955 Colonoscopy 2000 Colorectal Cancer Screening 2000 Cologuard 2005 Immunochemical Fecal Occult Blood 2005 Mammogram 2005 Pneumococcal Immunization (5 0+ years) (1 of 1 - PCV) 2005 Zoster Immunization (2 of 3) 11/18/2015 09/23/2015 Influenza Immunization (#1) 2024 09/3 , 08/30/2017, 08/13/2017 SARS-COV-2 Immunization ( season) 2024 Respiratory Syncytial Virus (RSV) Immunization (Adult) (1 - 1-dose 75+ series) 2030 DTaP/Tdap/Td Immunization Discontinued 06/09/2016 TdaP Immunization Completed 06/09/2016 Hepatitis B Immunization Aged Out No longer eligible based on patient's age to complete this topic Meningococcal Immunization (ACWY) Aged Out No longer eligible based on patient's age to complete this topic Rotavirus Immunization Aged Out No lo nger eligible based on patient's age to complete this topic
--- OUTSIDE RECORDS SUMMARY | 2024-12-29 10:44 | XMS_ITS | Clinical Summary ---
Author Organization [facility] Address [facility] access hospital[address] [place] [address] Care Team Providers Care Operation Supervisor Name Role Phone Nanette Agosto [facility] Primary Care Provider + Allergies No known active allergies Medications diclofenac EC (VOLTAREN) 75 MG tablet Take 75 mg by mouth 2 (two) times daily. Active losartan (COZAAR) 50 MG tablet Take 50 mg by mouth daily. Active hydroCHLOROthiaz kelly (MICROZIDE) 12.5 MG capsule Take 12.5 mg by mouth every morning. Active vitamin D2, ergocalciferol, (VITAMIN D, ERGOCALCIFEROL,) 1.25 mg capsule Take 50,000 Units by mouth. Active medroxyPROGESTER one (PROVERA) 2.5 MG tablet Take 2.5 mg by mouth daily. Active vitamin C (ASCORBIC ACID) 500 MG tablet Take 1 tablet by mouth 2 (two) times daily. Active magnesium oxide (MAG-OX) 400 (240 Mg) MG tablet Take 400 mg by mouth daily. Active Misc Natural Products (BLACK GONZALEZ CONCENTRATE OR) Acti ve estradiol (ESTRACE) 0.5 MG tablet Take 1 tablet by mouth daily. 09/16/2022 Active traMADol (ULTRAM) 50 MG tablet Take 50 mg by mouth every 6 (six) hours as needed. 05/31/2022 Active Family History Medical History Relation Comments Stroke Father Colon Cancer Maternal Grandfather Arthritis Mother Colon polyps Mother None Mother Relation Status Comments Father Maternal Grandfather Mother Alive Social History Tobacco Use Types Packs/Day Years Used Date Smoking Tobacco: Never Smokeless Tobacco: Never Tobacco Cessation:Counseling Given: Not Answered Alcohol Use Standard Drinks/Week Comments Yes 0 (1 standard drink = 0.6 oz pur e alcohol) occas. Comments No Sex and Gender Information Value Date Recorded Sex Assigned at Not on file Legal Sex Female 7:04 PM CDT Gender Identity Not on file Sexual Orientation Not on file Last Filed Vital Signs Vital Sign Reading Time Taken Comments Blood Pressure 128/74 12/27/2022 9:20 AM SOFTWARE WRITER Pulse 68 12/27/2022 9:20 AM SOFTWARE WRITER Temperature 36.4 C (97.6 F) 12/27/2022 9:00 AM SOFTWARE WRITER Respiratory Rate 22 12/27/2022 9:20 AM SOFTWARE WRITER Oxygen Saturation 93% 12/27/2022 9:20 AM SOFTWARE WRITER Inhaled Oxygen Concentration - - Weight 104.3 kg (230 lb) 12/21/2022 11:46 AM SOFTWARE WRITER Height 171.5 cm (5' 7.5 ) 12/21/2022 11:46 AM CS T Body Mass Index 35.49 12/21/2022 11:46 AM SOFTWARE WRITER Plan of Treatment Health Maintenance Due Date Last Done Comments Hepatitis C 1973 Mammogram Screening 1995 Annual Medicare Wellness Visit 2020 Dexa Scan (General) 2020 COVID-19 Vaccine ( season) 2024 08/11/2022, 03/01/2022, 02/28/2022, Additional history exists Influenza Adult (#1) 2024 08/01/2022, 09/01/2021, 08/19/2019, Additional history exists DTaP, Tdap and Td Vaccines (2 - Td or Tdap) 06/09/2026 06/09/2016 RSV Immunization or 60+ Years (1 - 1-dose 75+ series) 2030 Colorectal Cancer Screening Colonoscopy (10 Years) 12/27/2032 12/27/2022, 12/27/2022 Zoster Vaccines Completed 07/15/2021, 04/14, 09/23/2015 Pneumococcal Vaccine: 65+ Years Completed 07/12/2022, 03/26/2021 Meningococcal B Vaccine Aged Out No l onger eligible based on patient's age to complete this topic Meningococcal Vaccine Aged Out No jorge nate eligible based on patient's age to complete this topic RSV Immunizations Under 20 Months Aged Out No longer eligible based on patient's age to complete this topic Medical Devices Implanted Type Area State Manager Device Identifier Shelf Expiration Date Model / Serial / Lot Hip Procedures Procedure Name Priority Date/Time Associated Diagnosis Comments COLONOSCOPY Routine 12/27/2022 7:23 AM SOFTWARE WRITER from Last 3 Months or Most Recently Relevant to Health Maintenance Insurance MEDICARE [employer] Care Teams Operation Supervisor Relationship Specialty Start Date End Date Nanette Agosto, BRICK CHIMNEY BUILDER-BC [address] [place] [address] PCP - General NURSE PRACTITIONER 12/27/22
--- OUTSIDE RECORDS SUMMARY | 2024-12-29 10:44 | XMS_ITS | Referral Summary ---
Author Organization [facility] Address Critical access hospital[address] [place] [address] Care Team Providers Care Conformal Pad Former Name Role Phone Cha Ozuna MD Unavailable [phone] Vikash Sampson MD Primary Care Provider [phone] Encounters Date Type Department Care Team Description 10/01/2024 1:08 PM SURG RN - 10/01/2024 11:59 PM [facility] Hospital Encounter [facility] Medical Office Bldg [facility] [place] [address] Screening mammogram, encounter for Discharge Disposition: Discharge to home or self care from Last 3 Months Allergies No known active allergies Medications ergocalciferol (VITAMIN D) 50,000 unit capsule TAKE 1 CAPSULE BY MOUTH ONCE A WEEK 05/27/2020 Active estradioL (ESTRACE) 0.5 mg tablet Take 0.5 mg by mouth daily 06/14/2020 Active hydroCHLOROthia zide (MICROZIDE) 12.5 mg capsule Take 12.5 mg by mouth daily 05/19/2020 Active losartan (COZAAR) 50 mg tablet Take 50 mg by mouth daily 05/28/2020 Active medroxyPROGESTE Ash (PROVERA) 2.5 mg tablet Take 2.5 mg by mouth daily 06/14/[address] (VOLTAREN) 75 mg EC tablet Take 75 mg by mouth 12/30/2020 Active Active Problems Problem Noted Date Diagnosed Date Abnormal mammogram 07/31/2020 Social History Tobacco Use Types Packs/Day Years Used Date Smoking Tobacco: Never Comments No Sex and Gender Information Value Date Recorded Sex Assigned at Not on file Legal Sex Female 1:23 PM SURG RN Gender Identity Female 07/29/2020 11:58 AM CDT Sexual Orientation Straight 07/29/2020 11 :58 AM CDT Last Filed Vital Signs Vital Sign Reading Time Taken Comments Blood Pressure - - Pulse - - Temperature - - Respiratory Rate - - Oxygen Saturation - - Inhaled Oxygen Concentration - - Weight 113.4 kg (250 lb) 02/09/2021 8:38 AM CDT Height 175.3 cm (5' 9 ) 02/09/2021 8:38 AM CDT Body Mass Index 36.92 02/09/2021 8:38 AM CDT Plan of Treatment Not on file Procedures Procedure Name Priority Date/Time Associated Diagnosis Comments SCREENING MAMMOGRAM BILATERAL W TERESITA Schedule Routine, Read Routine (OP Routine) 10/01/2024 1:25 PM SURG RN Screening mammogram, encounter for from Last 3 Months Results * Screening Mammogram Bilateral W Teresita (10/01/2024 1:25 PM SURG RN) Anatomical Region Laterality Modality Breast Bilateral Mammography Impressions 10/01/2024 3:03 PM SURG RN BI-RADS ATLAS category (overall): 2 - Benign There is no mammographic evidence of malignancy. A 1 year screening mammogram is recommended. The patient has been or will be contacted. We recommend annual screening mammography for women at average risk of breast cancer beginning at age 40, based on guidelines of the [employer] (ACR Practice Parameter for the Performance of Screening and Diagnostic Mammography) and [employer]. For women with and elevated risk of breast cancer, please refer to the ACR Practice Parameter for specific screening recommendations. The patient will be entered into a reminder system with a target due date of 1 year for her next screening exam. Narrative 10/01/2024 3:03 PM SURG RN Screening Mammogram Bilateral W Teresita: 10/01/24 The study was acquired using full field digital technology and interpreted from soft copy. 2D digital mammographic views, as well as 3D digital tomosynthesis were performed in the CC and MLO projections. CLINICAL: Screening mammogram, encounter for. No relevant medical history has been documented for this patient. History of breast cancer in Mother's Sister. COMPARISONS: 08/07/2023 Screening Mammogram Bilateral W Teresita 07/25/2022 Screening Mammogram Bilateral W Teresita 07/02/2021 Diagnostic Mammogram Bilateral W Teresita 07/02/2021 US Breast Right Limited 02/09/2021 US Breast Right Limited 07/31/2020 US Breast Right Limited 07/24/2020 Breast Imaging Outside Reference 07/14/2020 Breast Imaging Diagnostic Outside Reference 07/14/2020 Breast Imaging US Outside Reference 06/30/2020 Breast Imaging Screening Outside Reference BREAST TISSUE: The breasts are heterogeneously dense, which may obscure small masses. FINDINGS: There are stable postoperative changes in both breasts. There are benign calcifications in both breasts. There also are benign cysts in the right breast, as characterized on prior ultrasound. There is no new suspicious finding in either breast on mammogram. us Self Screening Mammogram IMG MAMMO PROCEDURES Fi nal Result from Last 3 Months Insurance MEDICARE T SENIOR SUPPLEMENT [address] MEDICARE A[employer] SENIOR SUPPLEMENT Care Teams Conformal Pad Former Relationship Specialty Start Date End Date Vikash Sampson MD [address] [place] [id number] PCP - General Family Medicine 10/01/24 Cha Ozuna MD [address] [address] Referring Physician Gynecology 07/14/20
--- OUTSIDE RECORDS SUMMARY | 2024-12-29 10:44 | XMS_ITS | Clinical Summary ---
Author Organization [facility] Address [address] [place] [id number] Care Team Providers Care Route Delivery Manager Name Role Phone Cha Ozuna MD Unavailable [phone] Vikash Sampson MD Primary Care Provider [phone] Allergies No known active allergies Medications ergocalciferol [...] Noted Date Diagnosed Date Abnormal mammogram 07/31/2020 Encounters Date Type Department Care Team Description 10/01/2024 1:08 PM AUDIO PRODUCTION ENGINEER - 10/01/2024 11:59 PM AUDIO PRODUCTION ENGINEER Hospital Encounter [facility] Medical Office Bldg [facility] [address] [place] [address] [address] [place] [address] Screening mammogram, encounter for Discharge Disposition: Discharge to home or self care from Last 3 Months Surgical History Surgery Date Site/Laterality Comments REDUCTION MAMMAPLASTY TOTAL HIP ARTHROPLASTY CHOLECYSTECTOMY TUBAL LIGATION Medical History Medical History Date Comments Heart disease Hypertension Family History Medical History Relation Name Comments Colon cancer Maternal Grandfather Breast cancer Mother's Sister Relation Name Status Comments Maternal Grandfather Mother's Sister Social History Tobacco Use Types Packs/Day Years Used Date Smoking Tobacco: Never Comments No Sex and Gender Information Value Date Recorded Sex Assigned at Not on file Legal Sex Female 1:23 PM AUDIO PRODUCTION ENGINEER Gender Identity Female 07/29/2020 11:58 AM CDT Sexual Orientation Straight 07/29/2020 11 :58 AM CDT Obstetrics History Para Term AB IAB SAB Ectopic Multiple Livin g Live Births 2 2 2 Date Outcome GA Total Labor Labor/2nd/3rd Weight Sex Type Anes PTL Dina A1 A5 Name Clin Term Term Last Filed Vital Signs Vital Sign Reading Time Taken Comments Blood Pressure - - Pulse - - Temperature - - Respiratory Rate - - Oxygen Saturation - - Inhaled Oxygen Concentration - - Weight 113.4 kg (250 lb) 02/09/2021 8:38 AM CDT Height 175.3 cm (5' 9 ) 02/09/2021 8:38 AM CDT Body Mass Index 36.92 02/09/2021 8:38 AM CDT Plan of Treatment Health Maintenance Due Date Last Done Comments Colon Cancer Screening-Colonoscopy 1955 Depression Screening 1955 Fall Risk Assessment 1955 Hepatitis C Screening 1955 Osteoporosis Screening-Bone Density Scan 1955 Hepatitis B Screening 1973 Zoster Vaccine (2 of 3) 11/18/2015 09/23/2015 Well Visit 65+ 2020 Pneumococcal vaccine 65+ (2 of 2 - PCV) 03/26/2022 03/26/2021 Breast Cancer Screening-Mammogram 10/01/2025 10/01/2024, 08/07/2023, 07/25/2022, Additional history exists DTaP/Tdap/Td Vaccine (2 - Td or Tdap) 06/09/2026 06/09/2016 Influenza Vaccine Completed 08/12/2024, , 09/01/2021, Additional history exists Procedures Procedure Name Priority Date/Time Associated Diagnosis Comments SCREENING MAMMOGRAM BILATERAL W TERESITA Schedule Routine, Read Routine (OP Routine) 10/01/2024 1:25 PM AUDIO PRODUCTION ENGINEER Screening mammogram, encounter for from Last 3 Months Results * Screening Mammogram Bilateral W Teresita (10/01/2024 1:25 PM AUDIO PRODUCTION ENGINEER) Anatomical Region Laterality Modality Breast Bilateral Mammography Impressions 10/01/2024 3:03 PM AUDIO PRODUCTION ENGINEER BI-RADS ATLAS category (overall): 2 - Benign There is no mammographic evidence of malignancy. A 1 year screening mammogram is recommended. The patient has been or will be contacted. We recommend annual screening mammography for women at average risk of breast cancer beginning at age 40, based on guidelines of the [employer] (ACR Practice Parameter for the Performance of Screening and Diagnostic Mammography) and [employer]. For women with and elevated risk of breast cancer, please refer to the ACR Practice Parameter for specific screening recommendations. The patient will be entered into a reminder system with a target due date of 1 year for her next screening exam. Narrative 10/01/2024 3:03 PM AUDIO PRODUCTION ENGINEER Screening Mammogram Bilateral W Teresita: 10/01/24 The [...] Result from Last 3 Months Insurance MEDICARE [facility] [address] MEDICARE AETNA SENIOR SUPPLEMENT Care Teams Route Delivery Manager Relationship Specialty Start Date End Date Vikash Sampson MD [address] [place] [id number] PCP - General Family Medicine 10/01/24 Cha Ozuna MD [address] [address] Referring Physician Gynecology 07/14/20
--- OUTSIDE RECORDS SUMMARY | 2024-12-29 10:45 | XMS_ITS | Data Portability ---
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 Not available 05/30/2023 09:30:56 Plan of Treatment Reminders Order Date Submit Date Provider Last Modified By Organization Details Last Modified Time Details Appointments None recorded. Lab BMP, serum or plasma [address], [address] [place], [address], 3 07:57:18 lipid panel, serum [address], [address] [place] [address], [address], 3 07:57:18 Referral None recorded. Procedures None recorded. Surgeries None recorded. Imaging None recorded. Medication Orders diclofenac sodium 75 mg tablet,víctor huizard release 2022 023 [facility], [address], [place], [address], 3 09:34:02 losartan 50 mg tablet 2022 023 [facility], [address], [place], [address], 3 09:34:02 hydrochloro thiazide 12.5 mg capsule 2022 023 [facility], [address], [place], [address], 09:34:03 Patient TargetsNo targets recorded. Patient Instructions Encounter Date Encounter Id Patient Instructions Last Modified By Organization Details Last Modified Time 05/30/2023 [id number] mo fu htn, lipid, osteoarthritis, hormone replacement. Not available 05/30/2023 09:29:04 Reason for Referral None Reported. Results Created Date Observation Date Name Description Value Unit Range Abnormal Flag Note LastModifiedBy Organization Detail LastModifiedTime 09/14/20 21 09/14/2021 TSH thyroid-stim ulating hormone 4.440 uIU/m L 0.465- 4.680 Not Available [facility] (Lab) [address] [place], [address], 09/14/2021 21:22:17 09/14/20 21 09/14/2021 T4 FREE free T4 1.52 NG/dL 0.78-2 .19 Not Available [facility] (Lab) [address] [place], [address], 09/14/2021 21:06:35 06/01/20 22 06/02/2022 VITAM IN D,25- OH,TO AUTUMN,I A vitamin D,25-oh,tota l,ia 86 NG/mL 30-100 normal Vitam in D Statu s 25-OH Vitam in D: Defic iency : <20 ng/mL Insuf ficie ncy: 20 - 29 ng/mL Optim al: > or = 30 ng/mL For 25-OH Vitam in D testi ng on patie nts on D2-perez pplem entat ion and patie nts for whom quant itati on of D2 and D3 fract ions is requi red, the [facility] Assur eD(TM ) 25-OH VIT D, (D2,D 3), LC/MS /MS is recom jessica d: order code [id number] (leopoldo ents >2yrs ). See Note [address] to have a RelateIQli valery copy faxed has been [place]ck[place]: [phone] Note 1 For addit ional infor heather otero e refer to http: //[facility] m[facility]ffie ronaldo thomas ics.c om/fa q/FAQ 199 (This link is being provi ded for infor camryn mcgraw/ educfarida florez purpo ses only. ) Not Available [address] [address] [place], [address], 06/02/2022 05:52:30 06/01/20 22 06/02/2022 LIPID PANEL , STAND LIONEL cholesterol, total 169 mg/dL <200 normal Not Available [address], [address], 06/02/2022 05:52:30 06/01/20 22 06/02/2022 LIPID PANEL , STAND LIONEL HDL cholesterol 29 mg/dL > or = 50 low Not Available [address] [place], [address], 06/02/2022 05:52:30 06/01/20 22 06/02/2022 LIPID PANEL , STAND LIONEL triglyceride s 231 mg/dL <150 high If a non-f astin g speci men was colle cted, consi robb repea t trigl yceri de testi ng on a fasti ng speci men if clini mili indic ated. Ronnie wright et al. J. of Clin. Lipid ol. 2015; 9:129 -169. Not Available [address], [address], 06/02/2022 05:52:30 06/01/20 22 06/02/2022 LIPID PANEL , STAND LIONEL LDL-choleste rol 105 mg/dL _(nabil c) high Refer ence range : <100 Eduardo able range <100 mg/dL for prima ry preve ntion ; <70 mg/dL for patie nts with CHD or diabe tic patie nts with > or = 2 CHD risk facto rs. LDL-C is now calcu lated using the Brandy n-Hop kins calcu carmellapamela n, which is a valid ated novel estebano mason brewer than the Fried markel equat ion in the estim ation of LDL-C . Brandy osuna SS et al. KARI. 2013; 310(1 9): 2061- 2068 (http ://ed ucati on.Goldbely estradaGoodClic. com/f aq/FA Q164) Not Available [facility] [address] [address] [place], [address], 06/02/2022 05:52:30 06/01/20 22 06/02/2022 LIPID PANEL , STAND LIONEL chol/HDLC ratio 5.8 (calc ) <5.0 high Not Available [facility] [address] [address] [place], [address], 06/02/2022 05:52:30 06/01/20 22 06/02/2022 LIPID PANEL , STAND LIONEL non HDL cholesterol 140 mg/dL _(nabil c) <130 high For patie nts with diabe dana plus 1 major ASCVD risk facto r, treat ing to a non-H DL-C goal of <100 mg/dL (LDL- C of <70 mg/dL ) is brian yang optio n. Not Available [facility] [address] [address] [place], [address], 06/02/2022 05:52:30 11/24/19 23 11/25/2022 LIPID PANEL , STAND LIONEL cholesterol, total 186 mg/dL <200 normal Not Available [facility] [address] [address] [place], [address], 11/25/2022 02:16:37 11/24/19 23 11/25/2022 LIPID PANEL , STAND LIONEL HDL cholesterol 44 mg/dL > or = 50 low Not Available [facility] [address] [address] [place], [address], 11/25/2022 02:16:37 11/24/19 23 11/25/2022 LIPID PANEL , STAND LIONEL triglyceride s 130 mg/dL <150 normal Not Available [address], [address], 11/25/2022 02:16:37 11/24/19 23 11/25/2022 LIPID PANEL , STAND LIONEL LDL-choleste rol 117 mg/dL _(nabil c) high Refer ence range : <100 Eduardo able range <100 mg/dL for prima ry preve ntion ; <70 mg/dL for patie nts with CHD or diabe tic patie nts with > or = 2 CHD risk facto rs. LDL-C is now calcu lated using the Brandy n-Hop kins calcu kimberly n, which is a valid ated novel metho d provi ding eliza r accur acy than the Fried markel equat ion in the estim ation of LDL-C . Brandy osuna SS et al. KARI. 2013; 310(1 9): 2061- 2068 (http ://ed ucati on.Qu estradaGoodClic. [employer]/f aq/FA Q164) Not Available [address] [address] [place], [address], 11/25/2022 02:16:37 11/24/19 23 11/25/2022 LIPID PANEL , STAND LIONEL chol/HDLC ratio 4.2 (calc ) <5.0 normal Not Available [facility] [address] [address] [place], [address], 11/25/2022 02:16:37 11/24/19 23 11/25/2022 LIPID PANEL , STAND LIONEL non HDL cholesterol 142 mg/dL _(nabil c) <130 high For patie nts with diabe dana plus 1 major ASCVD risk facto r, treat ing to a non-H DL-C goal of <100 mg/dL (LDL- C of <70 mg/dL ) is consi dered a thera peuti c optio n. Not Available [facility] [address] [place], [address], 11/25/2022 02:16:37 06/27/20 23 06/28/2023 LIPID PANEL , STAND LIONEL cholesterol, total 207 mg/dL <200 high Not Available [address], [address], 06/28/2023 04:06:58 06/27/20 23 06/28/2023 LIPID PANEL , STAND LIONEL HDL cholesterol 44 mg/dL > or = 50 low Not Available [facility] [address] [address] [facility] [place], [address], 06/28/2023 04:06:58 06/27/20 23 06/28/2023 LIPID PANEL , STAND LIONEL triglyceride s 161 mg/dL <150 high Not Available [facility] [address], [address], 06/28/2023 04:06:58 06/27/20 23 06/28/2023 LIPID PANEL , STAND LIONEL LDL-choleste rol 133 mg/dL _(nabil c) high Refer ence range : <100 Eduardo able range <100 mg/dL for prima ry preve ntion ; <70 mg/dL for patie nts with CHD or diabe tic patie nts with > or = 2 CHD risk facto rs. LDL-C is now calcu lated using the Brandy n-Hop kins calcu kimberly n, which is a valid ated novel diego kay r accur acy than the Fried markel equat ion in the estim ation of LDL-C . Brandy osuna SS et al. KARI. 2013; 310(1 9): 2061- 2068 (http ://ed ucati on.Qu Ronni nguyenRavtis. com/f aq/FA Q164) Not Available [facility] [address] [place], [address], 06/28/2023 04:06:58 06/27/20 23 06/28/2023 LIPID PANEL , STAND LIONEL chol/HDLC ratio 4.7 (calc ) <5.0 normal Not Available [facility] [place] [address] [place], [address], 06/28/2023 04:06:58 06/27/2006/28/2023 LIPID PANEL , STAND LIONEL non HDL cholesterol 163 mg/dL _(nabil c) <130 high For patie nts with diabe dana plus 1 major ASCVD risk facto r, treat ing to a non-H DL-C goal of <100 mg/dL (LDL- C of <70 mg/dL ) is consi dered a thera peuti c optio n. Not Available [address], [address], 06/28/2023 04:06:58 06/27/2006/28/2023 BASIC METAB OLIC PANEL glucose 93 mg/dL 65-99 normal Fasti ng refer ence inter idania Not Available [address], [address], 06/28/2023 04:07:01 06/27/20 23 06/28/2023 BASIC METAB OLIC PANEL urea nitrogen (BUN) 23 mg/dL 7-25 normal Not Available [address], [address], 06/28/2023 04:07:01 06/27/2006/28/2023 BASIC METAB OLIC PANEL creatinine 0.96 mg/dL 0.50-1 .05 normal Not Available [address], [address], 06/28/2023 04:07:01 06/27/2006/28/2023 BASIC METAB OLIC PANEL eGFR 65 mL/mi n/1.7 3m2 > or = 60 normal Not Available [address], [address], 06/28/2023 04:07:01 06/27/20 23 06/28/2023 BASIC METAB OLIC PANEL BUN/creatini ne ratio SEE NOTE: (calc ) 6-22 Not Repor nakul: BUN and Creat inine are withi n refer ence range . Not Available [address], [address], 06/28/2023 04:07:01 06/27/20 23 06/28/2023 BASIC METAB OLIC PANEL sodium 139 mmol/ L 135-14 6 normal Not Available [address], [address], 06/28/2023 04:07:01 06/27/20 23 06/28/2023 BASIC METAB OLIC PANEL potassium 3.9 mmol/ L 3.5-5. 3 normal Not Available [address], [address], 06/28/2023 04:07:01 06/27/20 23 06/28/2023 BASIC METAB OLIC PANEL chloride 103 mmol/ L 98-110 normal Not Available [address], [address], 06/28/2023 04:07:01 06/27/20 23 06/28/2023 BASIC METAB OLIC PANEL carbon dioxide 28 mmol/ L 20-32 normal Not Available [address], [address], 06/28/2023 04:07:01 06/27/20 23 06/28/2023 BASIC METAB OLIC PANEL calcium 9.1 mg/dL 8.6-10 .4 normal Not Available [facility] [address], [address], 06/28/2023 04:07:01 03/10/2003/10/2022 XR, hip + pelvi s, unila teral No observ ation record ed. [id number] [address], [place], [address], 01/11/2023 08:13:19 04/26/20 22 04/26/2022 XR, hip + pelvi s, bilat eral No observ ation record ed. [id number] [facility] [address], [place], [address], 01/11/2023 08:13:19 08/07/20 23 08/07/2023 MAMMO , scree fernie, digit al, bilat eral No observ ation record ed. [facility] [address] [facility] , [place], [address], 08/10/2023 07:43:53 10/01/20 24 10/01/2024 MAMMO , scree fernie, bilat eral No observ ation record ed. [id number] [facility] [place] [address] [place], [address], 11/22/2024 14:59:46 Result Notes None recorded. Problems Name Problem SNOMED Code Status Onset Date Resolution Date Notes Provider Name and Address Organization Details Recorded Time Hammer toe 293336054 Active 2018 Not Available [facility] 3 08:09:36 Neck sprain 926622244 Active Not Available [facility] 3 08:09:36 Abdominal pain 37868402 Active Not Available [facility] 3 08:09:36 Pain 70855886 Active Not Available [facility] 3 08:09:36 Gallstone 465263609 Active Not Available [facility] 3 08:09:36 Osteoarthriti s of hip 468835432 Active Not Available [facility] 3 08:09:36 Poor posture 323763101 Active Not Available [facility] 3 08:09:36 Hormone replacement therapy Active 2022 Not Available [facility] 3 08:09:36 Peripheral edema 748560916 Active 2018 Not Available [facility] 3 08:09:36 Hip joint painful on movement 792452992 Active Not Available [facility] 3 08:09:36 Finding of body mass index 853322737 Active 2019 Not Available [facility] 3 08:09:36 Motion sickness 51687816 Active Not Available [facility] 3 08:09:36 Arthritis 5487287 Active Not Available [facility] 3 08:09:36 Hypertensive disorder 80969635 Active 2018 Not Available [facility] 3 08:09:37 Osteoarthriti s 104683375 Active 2020 Not Available [facility] 3 08:09:37 Obesity 780973672 Active 2018 Not Available [facility] 3 08:09:37 Hyperlipidemi a 32527216 Active 2016 diet contro lled. Not Available [facility] 3 08:09:37 Rheumatic fever 88338528 Active 2018 Not Available [facility] 3 08:09:37 Essential hypertension 32854112 Active 2018 Not Available [facility] 3 08:09:37 Posterior rhinorrhea 66678760 Active Not Available [facility] 3 08:09:37 Epigastric pain 93919513 Active Not Available [facility] 3 08:09:37 Obese 457834046 Active 2022 Nanette Agosto NP [address], [address] , [facility] 3 08:13:29 Vitamin D deficiency 76344277 Active 2022 Nanette Agosto NP [address] [facility], [place] [address], [place], [address] , [employer] 3 08:14:04 COVID-19 947549692 Active 2022 Nanette Agosto NP [address] [facility], [address], [address] , [facility] [employer] 3 10:31:03 Notes:back/neck problems, us e of NSAIDS Problem Notes None recorded. Procedures Surgical History Date Name Laterality Status Provider Name and Address Organization Details Recorded Time 12/27/19 Date of Last Colonoscopy completed [facility] [address] [facility] [address], [place], [address], [facility] 05/30/2023 09:33:27 12/27/19 23 colonoscopy completed Not Available [facility] 01/12/20 23 08:06:30 07/14/20 22 Most Recent Mammogram completed Nanette Lozada RN [facility] 05/30/2023 09:11:51 04/26/20 22 total replacement of hip completed Not Available [facility] 01/11/2023 08:06:30 tonsillectomy completed Not Available [facility] 01/11/2023 08:06:30 Breast Surgery completed Not Available [facility] 01/11/2023 08:06:30 other completed Not Available [facility] 11/2022 08:06:30 Imaging Results Imaging Date Name Status LastModified by Organiz ation Details LastModified Time 03/10/2022 XR, hip + pelvis, unilateral completed [id number] [place] [address], [address], 01/11/2023 08:13:19 04/26/2022 XR, hip + pelvis, bilateral completed [id number] [place] [address], [address], 01/11/2023 08:13:19 08/07/2023 MAMMO, screening, digital, bilateral completed [address], [address], 08/10/2023 07:43:53 10/01/2024 MAMMO, screening, bilateral completed [id number] [facility] [address], [address], 11/22/2024 14:59:46 Procedure Notes None recorded. Medical Equipment None Reported. Allergies No known drug allergies Medications Name Sig Start Date Stop Date Status Note LastModified by Organization Details LastModified Time losartan 50 mg tablet active Not Available Not Available Not Available amoxicilli n 500 mg capsule TAKE FOUR CAPSULES BY MOUTH ONE HOUR BEFORE APPOINTM ENT active dental procedu re. Not Available Not Available Not Available clindamyci n HCl 300 mg capsule TAKE 1 CAPSULE EVERY 8 HOURS UNTIL ALL TAKEN TO BE STARTED ON MONDAY MORNING (11/23/19 ) 03/18 completed Not Available Not Available Not Available medroxypro gesterone 2.5 mg tablet TAKE 1 TABLET BY MOUTH ONCE DAILY active Not Available Not Available No t Available hydrocodon e 5 mg-acetami nophen 325 mg tablet 02/07 completed Not Available Not Available Not Available ondansetro n HCl 4 mg tablet 02/07 completed Not Available Not Available Not Available sulfametho xazole 800 mg-trimeth oprim 160 mg tablet TAKE 1 TABLET BY MOUTH EVERY 12 HOURS FOR 10 DAYS 05/24 completed Not Available Not Available Not Available hydrocodon e 10 mg-acetami nophen 325 mg tablet TAKE 1 TABLET EVERY SIX HOURS NEEDED FOR MODERATE PAIN OF 4 TO 6 ON THE PAIN SCALE 03/18 completed Not Available Not Available Not Available tramadol 50 mg tablet TAKE 1 TABLET BY MOUTH EVERY 6 HOURS NEEDED FOR PAIN 05/30 completed Not Available Not Available Not Available Mobic 15 mg tablet Take 1 tablet every day by oral route in the morning for 30 days. 06/27 completed Not Available Not Available Not Available oxycodone- acetaminop hen 5 mg-325 mg tablet 05/24 completed Not Available Not Available Not Available amitriptyl ine 10 mg tablet 1 tab po nightly prn sleep active Not Available Not Available No t Available cephalexin 500 mg capsule 02/07 completed Not Available Not Available Not Available clotrimazo le-betamet hasone 1 %-0.05 % topical cream APPLY CREAM TOPICALL Y TO THE AFFECTED AREA(S) TWICE DAILY FOR 2 WEEKS active Not Available Not Available No t Available lisinopril 10 mg tablet Take 1 tablet every day by oral route. 02/03 completed had a dry cough Not Available Not Available Not Available hydrochlor othiazide 12.5 mg capsule TAKE 1 CAPSULE BY MOUTH ONCE DAILY 2022 active Not Available Not Available Not Avai lable diclofenac sodium 75 mg tablet,del ayed release TAKE 1 TABLET BY MOUTH TWICE DAILY WITH FOOD NEEDED FOR JOINT PAIN 2022 active Not Available Not Available Not Avai lable estradiol 0.5 mg tablet TAKE 1 TABLET BY MOUTH ONCE DAILY active Not Available Not Available No t Available ergocalcif aminta (vitamin D2) 1,250 mcg (50,000 unit) capsule TAKE 1 CAPSULE BY MOUTH ONCE A WEEK active Not Available Not Available No t Available Transderm- Scop 1 mg over 3 days transderma l patch active Not Available Not Available Not Available Vitamin D3 25 mcg (1,000 unit) capsule Take 1 capsule every day by oral route. 11/15 completed Not Available Not Available Not Available cyclobenza daniel 5 mg tablet Take 1 tablet every day by oral route at bedtime for 30 days. 06/27 completed Not Available Not Available Not Available Fish Oil 1 PO QD 04/04 completed Not Available Not Available Not Available Suprep Bowel Prep Kit 17.5 gram-3.13 gram-1.6 gram oral solution active Not Available Not Available Not Available Jinteli 1 mg-5 mcg tablet TK 1 T PO QD 02/07 completed Not Available Not Available Not Available Flucelvax Quad 7232-4193 (PF) 60 mcg (15 mcg x 4)/0.5 mL IM syringe 02/07 completed Not Available Not Available Not Available Paxlovid 150 mg-100 mg tablets in a dose pack (Renal Dose) TAKE 1 DOSE PACK (MORNING AND EVENING DOSE) BY MOUTH ONCE DAILY active Not Available Not Available No t Available Vitals Date Recorded Body mass index (BMI) Body mass index (BMI) Body mass index (BMI) Body mass index (BMI) Body height Body height Body height Body height Oxygen saturation Oxygen saturation in Arterial blood by Pulse oximetry Oxygen saturation Oxygen saturation in Arterial blood by Pulse oximetry Oxygen saturation Oxygen saturation in Arterial blood by Pulse oximetry Oxygen saturation Oxygen saturation in Arterial blood by Pulse oximetry Heart rate Heart rate Heart rate Heart rate Respiratory rate Body temperature Body temperature Body temperature Body temperature Body weight Body weight Body weight Body weight Systolic blood pressure Diastolic blood pressure Systolic blood pressure Diastolic blood pressure Systolic blood pressure Diastolic blood pressure Systolic blood pressure Diastolic blood pressure Provider Name and Address Organization Details Last Updated DateTime 3 38.7 kg/m2 39.3 kg/m2 36.7 kg/m2 35.2 kg/m2 173.99 cm 173.99 cm 173.99 cm 173.99 cm 98 % 98 % 97 % 97 % 97 % 97 % 98 % 98 % 81 /min 88 /min 87 /min 72 /min 16 /min 97.5 [degF] 98.1 [degF] 96.7 [degF] 98 [degF] 734656. 83 g 383782. 2 g 731061. 13 g 996014. 21 g 132 mm[Hg] 80 mm[Hg] 122 mm[Hg] 84 mm[Hg] 132 mm[Hg] 78 mm[Hg] 126 mm[Hg] 80 mm[Hg] Not Available [facility] 3 08:08:16 Date Recorded Body height Body mass index (BMI) Body weight Body temperature Heart rate Respiratory rate Oxygen saturation Oxygen saturation in Arterial blood by Pulse oximetry Pain severity - 0-10 verbal numeric rating [Score] - Reported Systolic blood pressure Diastolic blood pressure Provider Name and Address Organization Details Last Updated DateTime 3 173.99 cm 36.1 kg/m2 007789. 76 g 96.4 [degF] 75 /min 16 /min 97 % 97 % 0 124 mm[Hg] 80 mm[Hg] Nanette Lozada RN [facility] [place] [employer] 3 09:08:42 Social History Question Answer Notes LastModified by Organizat ion Details LastModified Time Tobacco Smoking Status Never Smoker Not Available [facility] 01/11/2023 08:06:14 Do You Have An Advance Directive? No Information not available 05/30/2023 What Is Your Level Of Alcohol Consumption? Occasional [id number] Information not available 01/11/2023 Are You Blind Or Do You Have Difficulty Seeing? No [id number] Information not available 01/11/2023 Is Blood Transfusion Acceptable In An Emergency? Yes Information not available 05/30/2023 What Is Your Level Of Caffeine Consumption? Occasional [id number] Information not available 01/11/2023 What Is Your Code Status? Full Code Information not available 05/30/2023 In The 14 Days Before Symptom Onset, Have You Had Close Contact With A Laboratory-danieli sonnyed COVID-19 While That Case Was Ill? No [id number] Information not available 01/11/2023 In The 14 Days Before Symptom Onset, Have You Had Close Contact With A Person Who Is Under Investigation For COVID-19 While That Person Was Ill? No [id number] Information not available 01/11/2023 Are You Deaf Or Do You Have Serious Difficulty Hearing? No [id number] Information not available 01/11/2023 What Type Of Diet Are You Following? REGULAR [id number] Information not available 01/11/2023 Which Illicit Or Recreational Drugs Have You Used? NONE [id number] Information not available 01/11/2023 Do You Or Have You Ever Used E-cigarettes Or Vape? Never Used Electronic Cigarettes [id number] Information not available 01/11/2023 What Is Your Occupation? Retired [id number] Information not available 01/11/2023 How Many Days Of Moderate To Strenuous Exercise, Like A Brisk Walk, Did You Do In The Last 7 Days? 7 Information not available 05/30/2023 On Those Days That You Engage In Moderate To Strenuous Exercise, How Many Minutes, On Average, Do You Exercise? 30 Information not available 05/30/2023 Have There Been Any Changes To Your Family Or Social Situation? No [id number].[id number] [id number] Information not available 01/11/2023 Are There Any Guns Present In Your Home? No Information not available 05/30/2023 Do You Use Insect Repellent Routinely? No Information not available 05/30/2023 Where Do You Live? SingleLevelHouse Information not available 05/30/2023 Do You Have A Medical Power Of [place] [employer]? No Information not available 05/30/2023 Do You Have Any Pets? No Information not available 05/30/2023 What Is Your Relationship Status? [id number] Information not available 01/11/2023 Do You Use Your Seat Belt Or Car Seat Routinely? Yes [id number] [id number] Information not available 01/11/2023 Do You Have Smoke And Carbon Monoxide Detectors In Your Home? Yes Information not available 05/30/2023 Are You Passively Exposed To Smoke? No Information not available 05/30/2023 Do You Or Have You Ever Used Smokeless Tobacco? Never Used Smokeless Tobacco [id number].[id number] [id number] Information not available 01/11/2023 Are There Any Smokers In Your House? No Information not available 05/30/2023 How Much Tobacco Do You Smoke? No MIGRATION.19777 [id number] Information not available 01/11/2023 Do You Participate In Social Media? Yes [id number] [id number] Information not available 01/11/2023 What Types Of Sporting Activities Do You Participate In? Walk, Ride Stationary Bike, Or Outside Bike Information not available 05/30/2023 Do You Feel Stressed (tense, Restless, Nervous, Or Anxious, Or Unable To Sleep At Night)? [id number] [id number] Information not available 01/11/2023 Do You Use Sunscreen Routinely? No Information not available 05/30/2023 Have You Recently Traveled Abroad? No [id number] Information not available 01/11/2023 Sex: Female Functional Status Question Answer Note LastModified by Organizat ion Details LastModified Time Do you have difficulty walking or climbing stairs? No [id number] Information not available 01/11/2023 Do you have transportation difficulties? No [id number] Information not available 01/11/2023 Are you able to walk? YESASSIST [id number] Information not available 01/11/2023 Do you have difficulty doing errands alone? No [id number] Information not available 01/11/2023 Are you able to care for yourself? Yes [id number] Information not available 01/11/2023 Do you have difficulty dressing or bathing? No [id number] Information not available 01/11/2023 What is your exercise level? Moderate [id number] Information not available 01/11/2023 Mental Status Question Answer Note LastModified by Organizat ion Details LastModified Time Do you have difficulty concentrating, remembering or making decisions? No [id number] Information not available 01/11/2023 Family History Relationship Description Onset Age of this Age Resolved Age Notes LastModified by Organization Details LastModified Time Mother Polyp of colon [id number] Not available 01/11/2023 08:06:31 Maternal Grandmother Cerebrovascu lar accident [id number] Not available 01/11/2023 08:06:31 Maternal Grandfather Type 2 diabetes mellitus [id number] Not available 01/11/2023 08:06:31 Maternal Grandfather Malignant tumor of colon [id number] Not available 01/11/2023 08:06:31 Notes:stroke - grandmother Medical History Condition Response BLINDNESS N RHEUMATIC FEVER N KIDNEY STONES N BLADDER PROBLEMS N MRSA N OTHER # 1 N POLIO N LUNG DISEASE/DISORDER N HISTORY OF DRUG ABUSE N RADIATION / CHEMOTHERAPY N COPD N Other # 2 N BLOOD DISEASES N SURGERY N EAR OR HEARING PROBLEMS N MUMPS N SHINGLES N FEMALE PROBLEMS / INFECTIONS N BOWEL PROBLEMS N DEPRESSION (INCLUDING POST ) N STROKE/TIA N THYROID DISEASE N ULCERS N BENIGN PROSTATIC HYPERPLASIA N MEASLES N CERVICALGIA N TB SKIN TEST N HYPOTENSION N MYOCARDIAL INFARCTION N PARAPELGIA N OBESITY N GERD/NAUSEA N ANEURYSM N URINARY/BLADDER/KIDNEY PROBLEMS N CORONARY ARTERY DISEASE (CAD) N MENIERE'S DISEASE N ADDICTION CONCERNS N ENDOMETRIOSIS N USE OF BLOOD THINNERS N SKIN PROBLEMS N EMPHYSEMA N GASTROINTESTINAL DISORDER N MUSCLE,JOINT OR BONE PROBLEMS N GASTROINTESTINAL BLEEDING N BLOOD CLOTS N ASTHMA N CATARACTS N ERECTILE DYSFUNCTION N GI PROBLEMS N CHF N Low Testosterone N NEUROPATHY N INFERTILITY N AIDS/HIV N FRACTURES N CHEMOTHERAPY / RADIATION N VISION/EYE PROBLEMS N LIVER DISEASE N MALE HYPOGONADISM N HYPERTENSION Y TOURETTE'S N ANXIETY DISORDER N BLOOD TRANSFUSION N ANEMIA/BLOOD DISORDER N CHRONIC EAR INFECTIONS N BRONCHITIS N TUBERCULOSIS N GLAUCOMA N FOOT PROBLEM N DIVERTICULITIS N SLEEP APNEA N CHICKENPOX N ALLERGIES/HAYFEVER N INFECTIOUS DISEASE N PROSTATE N HEART ARRHYTHMIA N INSOMNIA N HIGH CHOLESTEROL / HYPERLIPIDEMIA N EYE PROBLEMS N HYPERTHYROIDISM N EATING DISORDER N EDEMA N CHRONIC PAIN SYNDROME N CONSTIPATION N CAROTID BLOCKAGE N BACK / NECK PROBLEMS N HAVE YOU BEEN HOSPITALIZED OR SEEN IN [facility] IN THE PAST YEAR ? N ATHEROSCLEROSIS N BREAST PROBLEMS N DIALYSIS N ECZEMA N FIBROMYALGIA N OSTEOPOROSIS N ARTHRITIS N NO SIGNIFICANT PAST MEDICAL HISTORY N APPENDICITIS N DIABETES, TYPE N BAD TEETH N HEARTBURN / REFLUX N ADD/ADHD N AUTISM SPECTRUM DISORDER (ASD) N HEPATITIS / LIVER DISEASE N PULMONARY DISEASE N GOUT N SLEEP DISORDER N ALZHEIMER'S DISEASE N PAIN N DEMENTIA N HERPES N SEIZURES/EPILEPSY N HEADACHES/MIGRAINES N VASCULAR DISEASE N PACEMAKER N DIZZINESS N HEART DISEASE/HEART PROBLEMS N KIDNEY DISEASE N SCARLET FEVER N MULTIPLE SCLEROSIS N DEVELOPMENTAL OR BEHAVIORAL DISORDERS N MENTAL DISORDER/ILLNESS N CANCER: SPECIFY N CARDIAC ARRHYTHMIA N PNEUMONIA N ATRIAL FIBRILLATION N Gall Stones N PULMONARY EMBOLISM N AUTOIMMUNE DISEASE N Gynecological History Statement/Question Response If Post Menopausal, Age at Menopause 48 Date of Last Mammogram 08/07/2023 Date of Last Colonoscopy 12/27/2022 Most Recent Mammogram 07/14/2022 Most Recent Bone Density Obstetrics History GPAL:G 0 P 0 0 0 0 Immunizations Vaccine Type Date Status Note Provider Nam e and Address Organization Details Recorded Time zoster live 5 completed Not Available [facility] 01/11/2023 08:13:05 Influenza, high-dose, trivalent, PF 2 completed Not Available [facility] 01/11/2023 08:13:05 SARS-COV-2 (COVID-19) vaccine, UNSPECIFIED 2 completed Not Available [facility] 01/11/2023 08:13:05 COVID-19 Non-[place] Vaccine, Product Unknown 1 completed Not Available [facility] 01/11/2023 08:13:05 pneumococcal polysaccharide PPV23 1 completed Not Available [facility] 01/11/2023 08:13:06 SARS-COV-2 (COVID-19) vaccine, UNSPECIFIED 1 completed Not Available [facility] 01/11/2023 08:13:06 SARS-COV-2 (COVID-19) vaccine, UNSPECIFIED 1 completed Not Available [facility] 01/11/2023 08:13:06 Influenza, split virus, trivalent, preservative 6 completed Not Available [facility] 01/11/2023 08:13:06 Influenza, split virus, trivalent, preservative 5 completed Not Available [facility] 01/11/2023 08:13:06 Influenza, split virus, quadrivalent, preservative 1 completed Not Available [facility] 01/11/2023 08:13:06 Influenza, split virus, quadrivalent, preservative 9 completed Not Available [facility] 01/11/2023 08:13:06 Influenza, split virus, quadrivalent, preservative 7 completed Not Available [facility] 01/11/2023 08:13:06 Influenza, split virus, quadrivalent, preservative 7 completed Not Available [facility] 01/11/2023 08:13:06 Influenza, split virus, trivalent, preservative 4 completed Not Available [facility] 01/11/2023 08:13:06 Tdap 6 completed Not Available [facility] 01/11/2023 08:13:06 Past Encounters Encounter ID Performer Location Encounter Start Date Encounter Closed Date Diagnosis/Indication Diagnosis SNOMED-CT Code Diagnosis ICD10 Code Diagnosis Note [id number] [address] [address] 1 03/24/2021 00:00:00 03/25/2021 07:48:[id number] [address] 09/14/2021 00:00:00 09/14/2021 11:05:[id number] [address] 1 03/22/2022 00:00:00 03/22/2022 10:09:[id number] [address] 1 05/24/2022 00:00:00 05/24/2022 09:18:[id number] [address] 11/22/2022 00:00:00 11/22/2022 09:20:51 [id number] Nanette Agosto NP [facility] [address] [address] 05/30/2023 08:53:31 05/30/2023 09:57:14 Hyperlipidemia 49812552 E78.5 Lipid panel due. Low fat diet. Osteoarthritis 012673769 M19.90 diclofenac . Essential hypertension 92840111 I10 losartan 50 mg po daily.HCTZ 12.5 mg po daily. Obese 543176454 E66.9 diet and lifestyle changes. Vitamin D deficiency 347 78237 E55.9 Vit d 50,000 IU po weekly. Health Concerns Section Related Observation LastModified by Organization Detai ls LastModified Time None Recorded Concern Status LastModified by Organization Details LastModified Time None Recorded Advance Directives Directive N: Payers Encounter Date Sequence Insurance Name Policy Number Policy Rothman Covered Member ID Rothman Member ID Guarantor Name 05/30/2023 1 [place] Lakesha Dong [id number] Lakesha Dong 05/30/2023 2 [employer] (MEDICARE SUPPLEMENT) Lakesha Dong [id number] Lakesha Dong Notes Date Note Type Note Provider Name and Address Organization Details Recorded Time 05/30/2023 text/html Here for 6 mo fu htn- Stablelipid- Tries to do low fat diet. Out of town visitors, fixing food for others.arthritis- Same. Flares with weather changes. Right hip. Ice compress helps. Hands and top of feet. Had toe surgery in 2019.obese- No weight drops.vit d def- Supplementing daily. Hormone replacement- Dr. Ozuna RECREATION PROGRAMMER providing. Nanette Agosto NP [address] [facility], [place] [address], [place], [address], [facility] [employer] 05/30/2023 09:41:38 OBGyn Episode No OBEpisode recorded.
[2024-12-29 11:41] VITALS: BP 143/78; PULSE 77; RESP 18; TEMP 36.8; O2SAT 96
--- NOTE | 2024-12-29 12:15 | ED.URI ---
HPI - URI/Sore Throat General Chief Complaint: Upper Respiratory Infection Stated Complaint: cough/ congestion Source: patient Mode of arrival: ambulatory Limitations: no limitations History of Present Illness HPI Narrative: 69-year-old female presents to [facility] with complaints of productive cough of green colored phlegm, chest congestion, shortness of breath, wheezing for the past 5-6 days. Patient denies fever, body aches, chills, nausea vomiting or diarrhea. Patient has been currently has similar symptoms. Patient reports that she has been taking gssn-jzj-slbwnst Mucinex and leftover amoxicillin with little relief. Patient is a nonsmoker. Patient denies recent travel. MD elicited complaint: cough Onset (ago): day(s) (-) Able to tolerate fluids by mouth: Yes Treatments prior to arrival: cold medicine Related Data Home Medications ?Medication ?Instructions ?Recorded ?Confirmed ?Last Taken ?Type cetirizine 10 mg capsule (Zyrtec) 10 mg PO DAILY PRN Sinus Symptoms 04/08/22 08/05/24 04/23/22 History estradiol 0.5 mg tablet 0.5 tablet PO DAILY 04/08/22 08/05/24 04/23/22 History magnesium oxide 400 mg PO DAILY 04/08/22 08/05/24 04/19/22 History medroxyprogesterone 2.5 mg tablet 1 tablet PO DAILY 04/08/22 08/05/24 04/24/22 History cholecalciferol (vitamin D3) 125 125 mcg PO DAILY 12/22/23 08/05/24 Unknown History mcg (5,000 unit) capsule omega 2-joi-hez-fish oil 100 1 cap PO BID 12/22/23 08/05/24 Unknown History mg-160 mg-1,000 mg capsule (Fish Oil) Allergies Allergy/AdvReac Type Severity Reaction Status Date / Time No Known Allergies Allergy Verified 12/29/24 11:53 Review of Systems Constitutional: Constitutional: Denies chills, Denies fatigue, Denies fever(s) and Denies weakness ENT: Denies dizziness, Denies epistaxis, Denies nasal congestion and Denies sore throat Respiratory: Respiratory: Reports chest congestion, Reports cough, Reports dyspnea and Reports wheezing Gastrointestinal: Gastrointestinal: Denies diarrhea, Denies nausea and Denies vomiting Musculoskeletal: Musculoskeletal: Denies arthralgias and Denies joint swelling Integumentary/Breasts: Skin/Breast: Denies rash Neurologic: Denies dizziness, Denies syncope and Denies headache(s) [facility] Past Medical History Medical History Elevated liver enzymes Abnormal glucose senior living (current) use of non-steroidal anti-inflammatories (nsaid) Osteoarthritis Obesity Vision loss Surgical History Surgical History History of tubal ligation 1986 History of tonsillectomy as a child History of cholecystectomy 2016 S/P total hip arthroplasty Right in 04/2022. Left hip in 2016 History of toe surgery [place], 2019, Dr. Steven Family History Family History Mother Hypertension Father , age 80 of cerebral hemorrhage Cerebrovascular accident Grandparent Carcinoma of colon Sibling No problems noted. Other Family history of arthritis Family history of malignant neoplasm Social History Social History Smoking status: Never smoker Alcohol intake: current Alcohol use details: 1 per month Substance use: never Substance use type: does not use Do You Feel Safe in your Home?: Yes Lack of Transportation: No Lack of Food: Never True Current Housing: I Have Housing Concerned About Future Housing: No Difficulty Paying Gas/Electric Bills: No Difficulty Paying for Meds: No Currently Unemployed: No Education: Bachelor's Degree Difficulty w/ Childcare or Family Care: No Living arrangements: with family Additional living arrangements comments: [facility] Occupation/Education: retired Additional occupation/education comments: 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 There is no relevant family history pertinent to the presenting complaint. Exam Const: General: healthy appearing and no acute distress Nutritional Appearance: well nourished Orientation/consciousness: patient oriented x3 Limitations: no limitations HENMT: Head: normal to inspection Ears: external ears normal and TM's normal bilaterally Face/Nose/Sinus: Normal external nose present and Normal nares present Face and sinus: normal facial exam Mouth: Yes Normal oral and palatal mucosa present and Yes lip normal Teeth and gingiva: dentition normal Throat: posterior oropharynx normal and uvula midline Eyes: Conjunctivae: conjunctivae normal Neck: Neck: normal visual inspection Resp: Effort & Inspection: normal respiratory effort, not labored and no retractions Auscultation: no crackles, no rales, no rhonchi, wheezes expiratory wheezes and left upper, breath sounds present and lung sounds not diminished Cardio: Rate: regular rate Rhythm: regular rhythm Heart sounds: no murmurs Skin: General skin exam: normal color Rashes: no rashes Neuro: General: patient oriented x3 and moves all extremities Speech: normal speech Gait exam (Neuro): Normal gait present Extrem: General: normal to inspection Psych: Affect: normal affect Attitude: cooperative Course Course Level of Care: [facility] Visit Vital Signs Vital signs: Vital Signs Temperature 36.8 C 12/29/24 11:41 Pulse Rate 77 12/29/24 11:41 Respiratory Rate 18 12/29/24 11:41 Blood Pressure 143/78 H 12/29/24 11:41 Pulse Oximetry 96 12/29/24 11:41 Oxygen Delivery Room Air 12/29/24 11:41 Temperature 36.8 C 12/29/24 11:41 Pulse Rate 77 12/29/24 11:41 Respiratory Rate 18 12/29/24 11:41 Blood Pressure 143/78 H 12/29/24 11:41 Pulse Oximetry 96 12/29/24 11:41 Oxygen Delivery Room Air 12/29/24 11:41 MDM - URI/Sore Throat MDM Narrative Medical decision making narrative: Discussed negative chest x-ray results with patient. Patient understands that symptoms are likely viral at this time representing bronchitis. Instructed patient leftover amoxicillin that she is taking at this time is likely not helping symptoms and she should discontinue. Instructed patient to follow-up with primary care provider and to proceed to the emergency room if symptoms worsen. Differential Diagnosis Differential diagnosis: Likely upper respiratory infection, otitis media and sinusitis Imaging Data Radiologist's impression: [facility] [address] [address] XRay Report Signed Patient: Lakesha Dong : 1955 MR#: [id number] Age: 69 Acct:[id number] Loc: [facility] ADM Date: 12/29/[address]: Ordering Physician: Leyla Maharaj APRN Date of Service: 12/29/24 Procedure(s): XR chest 2V Accession Number(s): [id number] cc: Leyla Maharaj APRN; Vikash Sampson MD~ CHEST RADIOGRAPH, PA AND LATERAL CLINICAL HISTORY: cough, wheezing . COMPARISON: None TECHNIQUE: PA and lateral views of the chest. FINDINGS The cardiomediastinal silhouette is unremarkable. The lungs are clear. Visualized osseous structures and soft tissues are unremarkable. IMPRESSION: No focal infiltrate or effusion. Reviewed, dictated and finalized at location A. ICS AND MATERIAL CUTTER Please be advised this is a medical document. It is intended for vvbr-vo-whau communication. It is written in medical language and may contain unfamiliar abbreviations or verbiage. Medical documents are intended to carry relevant information, facts as evident, and the clinical opinion of the practitioner at the time of the encounter. This report may have been done utilizing a voice recognition system. Attempts have been made to correct errors. However, there may be uncorrected grammatical, spelling, and recognition errors present. The file time of this note does not necessarily represent the time of service. Dictated By: Sofie Beatty MD 12/29/24 1232 Signed By: <Electronically signed by Sofie Beatty MD in OV> 12/29/24 1232 Critical Care Time Critical Care Time Critical Care Time: No Discharge Plan Discharge Clinical Impression: Bronchitis Patient Disposition: Home, Self-Care Condition: Stable Instructions: Acute Bronchitis (ED) Additional Instructions: Rest Increase fluids Take prednisone as prescribed Use inhaler as needed for shortness of breath, wheezing coughing fits Take Tessalon as needed for cough Follow-up with primary care provider if symptoms not improving proceed to the emergency room if symptoms worsen Patient Language: Spanish Prescriptions: New prednisone 20 mg tablet 40 mg PO DAILY 5 Days Qty: 10 0RF albuterol sulfate [Ventolin HFA] 90 mcg/actuation HFA aerosol inhaler 1 inh inhalation QID PRN (Reason: shortness of breath or wheezing) Qty: 6.7 0RF benzonatate 100 mg capsule 100 mg PO BID PRN (Reason: cough) Qty: 20 0RF No Action celecoxib 200 mg capsule 200 mg PO DAILY Qty: 90 1RF omeprazole 40 mg capsule,delayed release(DR/EC) 40 mg PO DAILY Qty: 30 3RF Rx Instructions: take 1 capsule q.a.m. on empty stomach and do not eat or drink for 15 minutes cholecalciferol (vitamin D3) 125 mcg (5,000 unit) capsule 125 mcg PO DAILY Fish Oil 100-160-1,000 mg capsule 1 cap PO BID estradiol 0.5 mg tablet 0.5 tablet PO DAILY medroxyprogesterone 2.5 mg tablet 1 tablet PO DAILY Zyrtec 10 mg Capsule 10 mg PO DAILY PRN (Reason: Sinus Symptoms) magnesium oxide 400 mg magnesium Capsule 400 mg PO DAILY losartan 50 mg tablet 50 mg PO QAM Qty: 90 1RF hydrochlorothiazide 12.5 mg capsule 12.5 mg PO QAM Qty: 90 1RF Follow-up/Referrals: Vikash Sampson MD [Primary Care Provider] - Time of Disposition: 12:47
== END 2024-12-29 12:50 | disposition home or self-care (01) ==
PROVIDERS: Emergency Provider Nurse Practitioner Family; PCP Family Medicine
DX: J40 Bronchitis, not specified as acute or chronic (principal); M19.90 Unspecified osteoarthritis, unspecified site; E66.9 Obesity, unspecified; Z96.643 Presence of artificial hip joint, bilateral; Z68.36 Body mass index [BMI] 36.0-36.9, adult
CPT/HCPCS: 71046; 99213; G0463

== ENCOUNTER 2025-05-11 12:48 | Outpatient (CLI) | payer MEDICARE, SELFPAY ==
--- NOTE | ~2025-05-11 | CT_ITS ---
CT of the Abdomen and Pelvis: Indication: Abdominal pain Technique: 2.5 mm axial scans were obtained through the abdomen and pelvis prior to and following in travenous administration of 130 cc of Omnipaque 350. Dose reduction technique was used on this scan b y utilizing automated exposure control and iterative reconstruction technique. The dose-length produc t (DLP) was 2552.65 mGy-cm. Findings: Scans through the lung bases are unremarkable. The liver, spleen, pancreas, adrenals and kidneys are within normal limits, aside from left renal cys t. Cholecystectomy clips are present. No evidence of aortic aneurysm. No lymphadenopathy. No bowel obstruction or bowel wall thickening. There is no evidence to suggest acute appendicitis. Images through the pelvis are degraded by streak artifact from bilateral hip arthroplasty. Visualized urinary bladder is unremarkable, though evaluation is suboptimal due to streak artifact. No pelvic m ass seen. No ascites. Impression: No significant abnormalities seen. Reviewed, dictated and finalized at location . Impression: No significant abnormalities seen.
[2025-05-11 13:11] LABS: Estimated Glomerular Filt Rate 55
== END 2025-05-11 12:49 | disposition home or self-care (01) ==
PROVIDERS: PCP Family Medicine; Visit Provider Family Medicine
DX: R10.9 Unspecified abdominal pain (principal)
CPT/HCPCS: 74178; Q9967

== ENCOUNTER 2025-05-12 12:38 | Emergency (ER) | payer MEDICARE, SELFPAY ==
--- OUTSIDE RECORDS SUMMARY | 2025-05-12 12:41 | XMS_ITS | Data Portability ---
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 Not available 05/30/2023 09:30:56 Plan of Treatment Reminders Order Date Submit Date Provider Last Modified By Organization Details Last Modified Time Details Appointments None recorded. Lab BMP, serum or plasma [address], [address] [place] [address], [address], 3 07:57:18 lipid panel, serum [address], [address] [place] [address], [address], 3 07:57:18 Referral None recorded. Procedures None recorded. Surgeries None recorded. Imaging None recorded. Medication Orders diclofenac sodium 75 mg tablet,víctor huizard release 2022 023 [facility], [address], [place], [address], 3 09:34:02 losartan 50 mg tablet 2022 023 [facility] [address], [address], [place], [address], 3 09:34:02 hydrochloro thiazide 12.5 mg capsule 2022 023 [facility] [address], [address], [place], [address], 09:34:03 Patient TargetsNo targets recorded. Patient Instructions Encounter Date Encounter Id Patient Instructions Last Modified By Organization Details Last Modified Time 05/30/2023 [id number] mo fu htn, lipid, osteoarthritis, hormone replacement. Not available 05/30/2023 09:29:04 Reason for Referral None Reported. Results Created Date Observation Date Name Description Value Unit Range Abnormal Flag Note LastModifiedBy Organization Detail LastModifiedTime 09/14/20 21 09/14/2021 TSH thyroid-stim ulating hormone 4.440 uIU/m L 0.465- 4.680 Not Available [facility] (Lab) [address] [place], [address], 09/14/2021 21:22:17 09/14/20 21 09/14/2021 T4 FREE free T4 1.52 NG/dL 0.78-2 .19 Not Available [facility] (Lab) [address] [place], [address], 09/14/2021 21:06:35 06/01/20 22 06/02/2022 VITAM IN [...] /MS is recom jessica d: order code [id number] (leopoldo ents >2yrs ). See Note [address] to have a dupli valery copy faxed has been acknsaloni wledg ed. [place]: [phone] Note 1 For addit ional infor heather otero refer to http: //[facility] ronaldo thomas ics.c om/fa q/FAQ 199 (This link is being provi ded for infor camryn mcgraw/ educfarida florez purpo ses only. ) Not Available [address] [address] [place], [address], 06/02/2022 05:52:30 06/01/20 22 06/02/2022 LIPID PANEL , STAND LIONEL cholesterol, total 169 mg/dL <200 normal Not Available [address], [address], 06/02/2022 05:52:30 06/01/20 22 06/02/2022 LIPID PANEL , STAND LIONEL HDL cholesterol 29 mg/dL > or = 50 low Not Available [address], [address], 06/02/2022 05:52:30 06/01/20 22 06/02/2022 LIPID PANEL , STAND LIONEL triglyceride s 231 mg/dL <150 high If a non-f astin g speci men was colle cted, consi robb repea t trigl yceri de testi ng on a fasti ng speci men if clini mili indic ated. Ronnie wright et al. J. of Clin. Lipid ol. 2015; 9:129 -169. Not Available [address] [address] [place], [address], 06/02/2022 05:52:30 06/01/20 22 06/02/2022 LIPID PANEL [...] which is a valid ated novel diego brewer than the Fried markel equat ion in the estim ation of LDL-C . Brandy osuna SS et al. KARI. 2013; 310(1 9): 2061- 2068 (http ://ed ucati on.Qu estradaRidePal. com/f aq/FA Q164) Not Available [facility] [address] [address] [place], [address], 06/02/2022 05:52:30 06/01/20 22 06/02/2022 LIPID PANEL , STAND LIONEL chol/HDLC ratio 5.8 (calc ) <5.0 high Not Available [facility] [address] [address] [place], [address], 06/02/2022 05:52:30 06/01/20 22 06/02/2022 LIPID PANEL , STAND LIONEL non HDL cholesterol 140 mg/dL _(nabil c) <130 high For patie nts with diabe dana plus 1 major ASCVD risk facto r, treat ing to a non-H DL-C goal of <100 mg/dL (LDL- C of <70 mg/dL ) is consi daly yang optio n. Not Available [facility] [address] [address] [address], [place], [address], 06/02/2022 05:52:30 11/24/19 23 11/25/2022 LIPID PANEL , STAND LIONEL cholesterol, total 186 mg/dL <200 normal Not Available [facility] [address] [address] [place], [address], 11/25/2022 02:16:37 11/24/19 23 11/25/2022 LIPID PANEL , STAND LIONEL HDL cholesterol 44 mg/dL > or = 50 low Not Available [facility] [address] [address] [place], [address], 11/25/2022 02:16:37 11/24/19 23 11/25/2022 LIPID PANEL , STAND LIONEL triglyceride s 130 mg/dL <150 normal Not Available [facility] [address] [place] [address], [address], 11/25/2022 02:16:37 11/24/19 23 11/25/2022 LIPID PANEL [...] 9): 2061- 2068 (http ://ed ucati on.Qu estRidePal. com/f aq/FA Q164) Not Available [facility] [address] [place], [address], 11/25/2022 02:16:37 11/24/19 23 11/25/2022 LIPID PANEL , STAND LIONLE chol/HDLC ratio 4.2 (calc ) <5.0 normal Not Available [facility] [address] [place] [address], [address], 11/25/2022 02:16:37 11/24/19 23 11/25/2022 LIPID PANEL , STAND LIONEL non HDL cholesterol 142 mg/dL _(nabil c) <130 high For patie nts with diabe dana plus 1 major ASCVD risk facto r, treat ing to a non-H DL-C goal of <100 mg/dL (LDL- C of <70 mg/dL ) is consi dered a thera peuti c optio n. Not Available [facility] [address] [place], [address], 11/25/2022 02:16:37 06/27/20 23 06/28/2023 LIPID PANEL , STAND LIONEL cholesterol, total 207 mg/dL <200 high Not Available [address], [address], 06/28/2023 04:06:58 06/27/20 23 06/28/2023 LIPID PANEL , STAND LIONEL HDL cholesterol 44 mg/dL > or = 50 low Not Available [address], [address], 06/28/2023 04:06:58 06/27/20 23 06/28/2023 LIPID PANEL , STAND LIONEL triglyceride s 161 mg/dL <150 high Not Available [address], [address], 06/28/2023 04:06:58 06/27/20 23 06/28/2023 LIPID PANEL [...] calcu lated using the Brandy n-Hop kins jahu kimberly n, which is a valid ated novel diego waldrop acy than the Fried markel equat ion in the estim ation of LDL-C . rBandy osuna SS et al. KARI. 2013; 310(1 9): 2061- 2068 (http ://ed ucati on.Qu Ronni reyes tics. com/f aq/FA Q164) Not Available [address], [address], 06/28/2023 04:06:58 06/27/20 23 06/28/2023 LIPID PANEL , STAND LIONEL chol/HDLC ratio 4.7 (calc ) <5.0 normal Not Available [address] [place], [address], 06/28/2023 04:06:58 06/27/20 23 06/28/2023 LIPID PANEL , STAND LIONEL non HDL cholesterol 163 mg/dL _(naibl c) <130 high For patie nts with diabe dana plus 1 major ASCVD risk facto r, treat ing to a non-H DL-C goal of <100 mg/dL (LDL- C of <70 mg/dL ) is consi dered a thera peuti c optio n. Not Available [address], [address], 06/28/2023 04:06:58 06/27/2006/28/2023 BASIC METAB OLIC PANEL glucose 93 mg/dL 65-99 normal Fasti ng refer ence inter idania Not Available [address], [address], 06/28/2023 04:07:01 06/27/20 23 06/28/2023 BASIC METAB OLIC PANEL urea nitrogen (BUN) 23 mg/dL 7-25 normal Not Available [address], [address], 06/28/2023 04:07:01 06/27/2006/28/2023 BASIC METAB OLIC PANEL creatinine 0.96 mg/dL 0.50-1 .05 normal Not Available [address], [address], 06/28/2023 04:07:01 06/27/2006/28/2023 BASIC METAB OLIC PANEL eGFR 65 mL/mi n/1.7 3m2 > or = 60 normal Not Available [address] [place], [address], 06/28/2023 04:07:01 06/27/20 23 06/28/2023 BASIC METAB OLIC PANEL BUN/creatini ne ratio SEE NOTE: (calc ) 6-22 Not Repor nakul: BUN and Creat inine are withi n refer ence range . Not Available [address], [address], 06/28/2023 04:07:01 06/27/20 23 06/28/2023 BASIC METAB OLIC PANEL sodium 139 mmol/ L 135-14 6 normal Not Available [address], [address], 06/28/2023 04:07:01 06/27/20 23 06/28/2023 BASIC METAB OLIC PANEL potassium 3.9 mmol/ L 3.5-5. 3 normal Not Available [address], [address], 06/28/2023 04:07:01 06/27/20 23 06/28/2023 BASIC METAB OLIC PANEL chloride 103 mmol/ L 98-110 normal Not Available [address], [address], 06/28/2023 04:07:01 06/27/20 23 06/28/2023 BASIC METAB OLIC PANEL carbon dioxide 28 mmol/ L 20-32 normal Not Available [address], [address], 06/28/2023 04:07:01 06/27/20 23 06/28/2023 BASIC METAB OLIC PANEL calcium 9.1 mg/dL 8.6-10 .4 normal Not Available [address], [address], 06/28/2023 04:07:01 03/10/20 22 03/10/2022 XR, hip + pelvi s, unila teral No observ ation record ed. [id number] [address], [place], [address], 01/11/2023 08:13:19 04/26/20 22 04/26/2022 XR, hip + pelvi s, bilat eral No observ ation record ed. [id number] [facility] [address], [place], [address], 01/11/2023 08:13:19 08/07/20 23 08/07/2023 MAMMO , scree fernie, digit al, bilat eral No observ ation record ed. [facility] [address] [facility] , [place], [address], 08/10/2023 07:43:53 10/01/20 24 10/01/2024 MAMMO , scree fernie, bilat eral No observ ation record ed. [email or web address] [facility] [address] [place], [address], 11/22/2024 14:59:46 Result Notes None recorded. Problems Name Problem SNOMED Code Status Onset Date Resolution Date Notes Provider Name and Address Organization Details Recorded Time Hammer toe 701581498 Active 2018 Not Available [facility] 3 08:09:36 Neck sprain 805831986 Active Not Available [facility] 3 08:09:36 Abdominal pain 70638229 Active Not Available [facility] 3 08:09:36 Pain 35683356 Active Not Available [facility] 3 08:09:36 Gallstone 227348755 Active Not Available [facility] 3 08:09:36 Osteoarthriti s of hip 427352639 Active Not Available [facility] 3 08:09:36 Poor posture 229168669 Active Not Available [facility] 3 08:09:36 Hormone replacement therapy Active 2022 Not Available [facility] 3 08:09:36 Peripheral edema 538315664 Active 2018 Not Available [facility] 3 08:09:36 Hip joint painful on movement 405221477 Active Not Available [facility] 3 08:09:36 Finding of body mass index 796135979 Active 2019 Not Available [facility] 3 08:09:36 Motion sickness 42315525 Active Not Available [facility] 3 08:09:36 Arthritis 9436299 Active Not Available [facility] 3 08:09:36 Hypertensive disorder 30084383 Active 2018 Not Available [facility] 3 08:09:37 Osteoarthriti s 861243588 Active 2020 Not Available [facility] 3 08:09:37 Obesity 717328072 Active 2018 Not Available [facility] 3 08:09:37 Hyperlipidemi a 72510223 Active 2016 diet contro lled. Not Available [facility] 3 08:09:37 Rheumatic fever 82929021 Active 2018 Not Available [facility] 3 08:09:37 Essential hypertension 61690547 Active 2018 Not Available [facility] 3 08:09:37 Posterior rhinorrhea 84725356 Active Not Available [facility] 3 08:09:37 Epigastric pain 88439480 Active Not Available [facility] 3 08:09:37 Obese 458952385 Active 2022 Nanette Agosto NP [address] [facility], [address] [address], [place], [address] , [employer] [facility] [employer] 3 08:13:29 Vitamin D deficiency 35980706 Active 2022 Nanette Agosto NP [address] [facility], [address], [place], [address] , [employer] [facility] [employer] 3 08:14:04 COVID-19 932489999 Active 2022 Nanette Agosto NP [address] [facility], [facility] [address], [place], [address] , [employer] [facility] [employer] [facility] 3 10:31:03 Notes:back/neck problems, us e of NSAIDS Problem Notes None recorded. Procedures Surgical History Date Name Laterality Status Provider Name and Address Organization Details Recorded Time 12/27/19 23 Date of Last Colonoscopy completed Nanette Agosto NP [address] [facility], [facility] [address], [place], [address], [facility] [employer] 05/30/2023 09:33:27 12/27/19 23 colonoscopy completed Not Available [facility] 01/12/20 08:06:30 07/14/20 22 Most Recent Mammogram completed Nanette Lozada RN [facility] [employer] 05/30/2023 09:11:51 04/26/20 22 total replacement of hip completed Not Available [facility] 01/11/2023 08:06:30 tonsillectomy completed Not Available [facility] 01/11/2023 08:06:30 Breast Surgery completed Not Available [facility] 01/11/2023 08:06:30 other completed Not Available [facility] 11/2022 08:06:30 Imaging Results None recorded. Procedure Notes None recorded. Medical Equipment None [...] Available Not Available Not Available Flucelvax Quad [id number] (PF) 60 mcg (15 mcg x 4)/0.5 mL IM syringe 02/07 completed Not Available Not Available Not Available Paxlovid 150 mg-100 mg tablets in a dose pack (Moderate Renal Dose) TAKE 1 DOSE PACK (MORNING AND EVENING DOSE) BY MOUTH ONCE DAILY active Not Available Not Available No t Available Vitals Date Recorded Body mass index (BMI) Body height Oxygen saturation Oxygen saturation in Arterial blood by Pulse oximetry Heart rate Respiratory rate Body temperature Body weight Systolic blood pressure Diastolic blood pressure Provider Name and Address Organization Details Last Updated DateTime 3 35.2 kg/m2 173.99 cm 98 % 98 % 72 /min 16 /min 98 [degF] 562563. 21 g 126 mm[Hg] 80 mm[Hg] Not Available [facility] 3 08:08:16 Date Recorded Body mass index (BMI) Body height Oxygen saturation Oxygen saturation in Arterial blood by Pulse oximetry Heart rate Body temperature Body weight Systolic blood pressure Diastolic blood pressure Provider Name and Address Organization Details Last Updated DateTime 2 39.3 kg/m2 173.99 cm 97 % 97 % 88 /min 98.1 [degF] 222104. 2 g 122 mm[Hg] 84 mm[Hg] Not Available [facility] 3 08:08:16 Date Recorded Body mass index (BMI) Body height Oxygen saturation Oxygen saturation in Arterial blood by Pulse oximetry Heart rate Body temperature Body weight Systolic blood pressure Diastolic blood pressure Provider Name and Address Organization Details Last Updated DateTime 2 36.7 kg/m2 173.99 cm 97 % 97 % 87 /min 96.7 [degF] 873516. 13 g 132 mm[Hg] 78 mm[Hg] Not Available [facility] 3 08:08:16 Date Recorded Body height Body mass index (BMI) Body weight Body temperature Heart rate Respiratory rate Oxygen saturation Oxygen saturation in Arterial blood by Pulse oximetry Systolic blood pressure Diastolic blood pressure Provider Name and Address Organization Details Last Updated DateTime 3 173.99 cm 36.1 kg/m2 565828. 76 g 96.4 [degF] 75 /min 16 /min 97 % 97 % 124 mm[Hg] 80 mm[Hg] Nanette Lozada RN [place] [facility] [employer] 3 09:08:42 Date Recorded Body mass index (BMI) Body height Oxygen saturation Oxygen saturation in Arterial blood by Pulse oximetry Heart rate Body temperature Body weight Systolic blood pressure Diastolic blood pressure Provider Name and Address Organization Details Last Updated DateTime 1 38.7 kg/m2 173.99 cm 98 % 98 % 81 /min 97.5 [degF] 981476. 83 g 132 mm[Hg] 80 mm[Hg] Not Available [facility] 3 08:08:15 Social History Question Answer Notes LastModified by Giivat ion Details LastModified Time Tobacco Smoking Status Never Smoker Not Available [facility] 01/11/2023 08:06:14 Do You Have An Advance Directive? No Information not available 05/30/2023 Are You Blind Or Do You Have Difficulty Seeing? No [id number] Information not available 01/11/2023 Is Blood Transfusion Acceptable In An Emergency? Yes Information not available 05/30/2023 What Is Your Level Of Caffeine Consumption? Occasional [id number].38549 [id number] Information not available 01/11/2023 What Is Your Code Status? Full Code Information not available 05/30/2023 In The 14 Days Before Symptom Onset, Have You Had Close Contact With A Laboratory-confi rmed COVID-19 While That Case Was Ill? No [id number].[id number] Information not available 01/11/2023 In The 14 Days Before Symptom Onset, Have You Had Close Contact With A Person Who Is Under Investigation For COVID-19 While That Person Was Ill? No MIGRATION.66679 [id number] Information not available 01/11/2023 Are You Deaf Or Do You Have Serious Difficulty Hearing? No MIGRATION.27029 43213 Information not available 01/11/2023 What Type Of Diet Are You Following? REGULAR MIGRATION.27809 17256 Information not available 01/11/2023 Which Illicit Or Recreational Drugs Have You Used? NONE MIGRATION.04515 19194 Information not available 01/11/2023 How Many Days [...] To Your Family Or Social Situation? No MIGRATION.74886 77149 Information not available 01/11/2023 Are There Any Guns Present In Your Home? No Information not available 05/30/2023 Do You Use Insect Repellent Routinely? No Information not available 05/30/2023 Where Do You Live? SingleLevelHouse Information not available 05/30/2023 Do You Have A Medical Power Of Shop Helper? No Information not available 05/30/2023 Do You Have Any Pets? No Information not available 05/30/2023 What Is Your Relationship Status? MIGRATION.83751 [id number] Information not available 01/11/2023 Do You Use Your Seat Belt Or Car Seat Routinely? Yes MIGRATION.70607 87393 Information not available 01/11/2023 Do You Have Smoke And Carbon Monoxide Detectors In Your Home? Yes Information not available 05/30/2023 Are You Passively Exposed To Smoke? No Information not available 05/30/2023 Are There Any Smokers In Your House? No Information not available 05/30/2023 How Much Tobacco Do You Smoke? No MIGRATION.77966 12221 Information not available 01/11/2023 Do You Participate In Social Media? Yes MIGRATION.66837 96297 Information not available 01/11/2023 What Types Of Sporting Activities Do You Participate In? Walk, Ride Stationary Bike, Or Outside Bike Information not available 05/30/2023 Do You Use Sunscreen Routinely? No Information not available 05/30/2023 Have You Recently Traveled Abroad? No MIGRATION.01355 50127 Information not available 01/11/2023 Do You Have Difficulty Walking Or Climbing Stairs? No MIGRATION.21873 14952 Information not available 01/11/2023 Sex: Female Functional Status Question Answer Note LastModified by Organizat ion Details LastModified Time What is your level of alcohol consumption? Occasional MIGRATION.061273 0063 Information not available 01/11/2023 Do you or have you ever used smokeless tobacco? Never used smokeless tobacco MIGRATION.012980 9216 Information not available 01/11/2023 Do you have transportation difficulties? No MIGRATION.292500 6316 Information not available 01/11/2023 Are you able to walk? YESASSIST MIGRATION.996629 7438 Information not available 01/11/2023 Do you have difficulty doing errands alone? No MIGRATION.189009 0106 Information not available 01/11/2023 Are you able to care for yourself? Yes MIGRATION.911297 1935 Information not available 01/11/2023 What is your occupation? retired MIGRATION.155522 0716 Information not available 01/11/2023 Do you have difficulty dressing or bathing? No MIGRATION.559620 6324 Information not available 01/11/2023 Do you or have you ever used e-cigarettes or vape? Never used electronic cigarettes MIGRATION.422103 7817 Information not available 01/11/2023 What is your exercise level? Moderate MIGRATION.865602 7487 Information not available 01/11/2023 Mental Status Question Answer Note LastModified by Organizat ion Details LastModified Time Do you feel stressed (tense, restless, nervous, or anxious, or unable to sleep at night)? [id number] MIGRATION.[id number] 26 Information not available 01/11/2023 Do you have difficulty concentrating, remembering or making decisions? No MIGRATION.[id number] 26 Information not available 01/11/2023 Family History Relationship Description Onset Age of this Age Resolved Age Notes LastModified by Organization Details LastModified Time Mother Polyp of colon [id number].111 [id number] Not available 01/11/2023 08:06:31 Maternal Grandmother Cerebrovascu lar accident MIGRATION.756 [id number] Not available 01/11/2023 08:06:31 Maternal Grandfather Type 2 diabetes mellitus MIGRATION.868 [id number] Not available 01/11/2023 08:06:31 Maternal Grandfather Malignant tumor of colon MIGRATION.428 [id number] Not available 01/11/2023 08:06:31 Notes:stroke - grandmother Medical History Condition Response BLINDNESS N RHEUMATIC FEVER N KIDNEY STONES N BLADDER PROBLEMS N MRSA N OTHER # 1 N POLIO N LUNG DISEASE/DISORDER N HISTORY OF DRUG ABUSE N RADIATION / CHEMOTHERAPY N COPD N Other # 2 N BLOOD DISEASES N SURGERY N EAR OR HEARING PROBLEMS N MUMPS N SHINGLES N BOWEL PROBLEMS N FEMALE PROBLEMS / INFECTIONS N DEPRESSION (INCLUDING POST ) N STROKE/TIA N THYROID DISEASE N ULCERS N BENIGN PROSTATIC HYPERPLASIA N MEASLES N CERVICALGIA N HYPOTENSION N TB SKIN TEST N MYOCARDIAL INFARCTION N PARAPELGIA N OBESITY [...] GLAUCOMA N FOOT PROBLEM N DIVERTICULITIS N CHICKENPOX N SLEEP APNEA N ALLERGIES/HAYFEVER N INFECTIOUS DISEASE N HEART ARRHYTHMIA N PROSTATE N INSOMNIA N HIGH CHOLESTEROL / HYPERLIPIDEMIA N HYPERTHYROIDISM N EYE PROBLEMS N EATING DISORDER N EDEMA N CHRONIC PAIN SYNDROME N CONSTIPATION N CAROTID BLOCKAGE N BACK / NECK PROBLEMS N HAVE YOU BEEN HOSPITALIZED OR SEEN IN [facility] IN THE PAST YEAR ? N ATHEROSCLEROSIS [...] DISORDER N ALZHEIMER'S DISEASE N PAIN N HERPES N DEMENTIA N HEADACHES/MIGRAINES N SEIZURES/EPILEPSY N VASCULAR DISEASE N PACEMAKER N DIZZINESS N HEART DISEASE/HEART PROBLEMS N KIDNEY DISEASE N DEVELOPMENTAL OR BEHAVIORAL DISORDERS N MULTIPLE SCLEROSIS N SCARLET FEVER N MENTAL DISORDER/ILLNESS N CARDIAC ARRHYTHMIA N CANCER: SPECIFY N PNEUMONIA N ATRIAL FIBRILLATION N Gall Stones N PULMONARY EMBOLISM N AUTOIMMUNE DISEASE N Gynecological History Statement/Question Response If Post Menopausal, Age at Menopause 48 Date of Last Mammogram 08/07/2023 Date of Last Colonoscopy 12/27/2022 Most Recent Mammogram 07/14/2022 Most Recent Bone Density Obstetrics History GPAL:G 0 P 0 0 0 0 Immunizations Vaccine Type Date Status Note Provider Tima esparza and Address Organization Details Recorded Time zoster live 5 completed Not Available [facility] 01/11/2023 08:13:05 Influenza, high-dose, trivalent, PF 2 completed Not Available [facility] 01/11/2023 08:13:05 SARS-COV-2 (COVID-19) vaccine, UNSPECIFIED 2 completed Not Available [facility] 01/11/2023 08:13:05 COVID-19 Non-US Vaccine, Product Unknown 1 completed Not Available [facility] 01/11/2023 08:13:05 pneumococcal polysaccharide PPV23 1 completed Not Available [facility] 01/11/2023 08:13:06 SARS-COV-2 (COVID-19) vaccine, UNSPECIFIED 1 completed Not Available [facility] 01/11/2023 08:13:06 SARS-COV-2 (COVID-19) vaccine, UNSPECIFIED 1 completed Not Available [facility] 01/11/2023 08:13:06 Influenza, split virus, trivalent, preservative 6 completed Not Available [facility] 01/11/2023 08:13:06 Influenza, split virus, trivalent, preservative 5 completed Not Available [facility] 01/11/2023 08:13:06 Influenza, split virus, quadrivalent, preservative 1 completed Not Available [facility] 01/11/2023 08:13:06 Influenza, split virus, quadrivalent, preservative 9 completed Not Available [facility] 01/11/2023 08:13:06 Influenza, split virus, quadrivalent, preservative 7 completed Not Available [facility] 01/11/2023 08:13:06 Influenza, split virus, quadrivalent, preservative 7 completed Not Available [facility] 01/11/2023 08:13:06 Influenza, split virus, trivalent, preservative 4 completed Not Available [facility] 01/11/2023 08:13:06 Tdap 6 completed Not Available [facility] 01/11/2023 08:13:06 Past Encounters Encounter ID Performer Location Encounter Start Date Encounter Closed Date Diagnosis/Indication Diagnosis SNOMED-CT Code Diagnosis ICD10 Code Diagnosis Note [id number] Rashawn Jones MD [facility] [address] [address] [place] [id number] 1 03/24/2021 00:00:00 03/25/2021 07:48:38 [id number] [facility] MD [facility] [address] [place] [phone] 1 09/14/2021 00:00:00 09/14/2021 11:05:26 [id number] Rashawn Jones MD [address] [address] 1 03/22/2022 00:00:00 03/22/2022 10:09:28 [id number] Nanette Agosto NP [address] [address] 1 05/24/2022 00:00:00 05/24/2022 09:18:38 [id number] Rashawn Jones MD [address] [address] 1 11/22/2022 00:00:00 11/22/2022 09:20:51 [id number] Nanette Agosto NP [address] [address] 1 05/30/2023 08:53:31 05/30/2023 09:57:14 Hyperlipidemia 20169810 E78.5 Lipid panel due. Low fat diet. Osteoarthritis 666973543 M19.90 diclofenac . Essential hypertension [id number] I10 losartan 50 mg po daily.HCTZ 12.5 mg po daily. Obese [id number] E66.9 diet and lifestyle changes. Vitamin D deficiency 347 88865 E55.9 Vit d 50,000 IU po weekly. Health Concerns Section Related Observation LastModified by Organization Detai ls LastModified Time None Recorded Concern Status LastModified by Organization Details LastModified Time None Recorded Advance Directives Directive N: Payers Insurance Date Sequence Insurance Name Policy Number Policy Rothman Covered Member ID Rothman Member ID Guarantor Name 03/30/2024 2 UNSPECIFIED REMIT PAYOR Lakesha Dong 03/30/2024 1 [place] Lakesha J Iker [id number] Lakesha Dong 06/06/2023 2 [employer] (MEDICARE SUPPLEMENT) Lakesha Juan Jose Iker [id number] Lakesha Dong Notes Date Note Type [...] def- Supplementing daily. Hormone replacement- Dr. Ozuna NEGOTIATIONS DIRECTOR providing. Nanette Agosto NP [address] [facility], [place] [address], [place], [address], [facility] [employer] 05/30/2023 09:41:38 OBGyn Episode No OBEpisode recorded.
--- OUTSIDE RECORDS SUMMARY | 2025-05-12 12:41 | XMS_ITS | Referral Summary ---
Author Organization [facility] Address Formerly [facility] [place] [address] Care Team Providers Care Adjuster Name Role Phone Cha Ozuna MD Unavailable [phone] Vikash Sampson MD Primary Care Provider [phone] Allergies No known active allergies Medications ergocalciferol [...] on file Legal Sex Female 1:23 PM TECHNICAL AIDE Gender Identity Female 07/29/2020 11:58 AM CDT Sexual Orientation Straight 07/29/2020 11 :58 AM CDT Last Filed Vital Signs Vital Sign Reading Time Taken Comments Blood Pressure - - Pulse - - Temperature - - Respiratory Rate - - Oxygen Saturation - - Inhaled Oxygen Concentration - - Weight 113.4 kg (250 lb) 02/09/2021 8:38 AM CDT Height 175.3 cm (5' 9) 02/09/2021 8:38 AM CDT Body Mass Index 36.92 02/09/2021 8:38 AM CDT Plan of Treatment Not on file Procedures Procedure Name Priority Date/Time Associated Diagnosis Comments SCREENING MAMMOGRAM BILATERAL W TERESITA Schedule Routine, Read Routine (OP Routine) 10/01/2024 1:25 PM TECHNICAL AIDE Screening mammogram, encounter for from Last 3 Months or Most Recently Relevant to Health Maintenance Results * Screening Mammogram Bilateral W Teresita (10/01/2024 1:25 PM TECHNICAL AIDE) Anatomical Region Laterality Modality Breast Bilateral Mammography Impressions 10/01/2024 3:03 PM TECHNICAL AIDE BI-RADS ATLAS category (overall): 2 - Benign There is no mammographic evidence of malignancy. A 1 year screening mammogram is recommended. The patient has been or will be contacted. We recommend annual screening mammography for women at average risk of breast cancer beginning at age 40, based on guidelines of the [place] [employer] (ACR Practice Parameter for the Performance of Screening and Diagnostic Mammography) and [place] [employer] Obstetricians and Gynecologists. For women with and elevated risk of breast cancer, please refer to the ACR Practice Parameter for specific screening recommendations. The patient will be entered into a reminder system with a target due date of 1 year for her next screening exam. Narrative 10/01/2024 3:03 PM TECHNICAL AIDE Screening Mammogram Bilateral W Teresita: 10/01/24 The [...] Fi nal Result from Last 3 Months or Most Recently Relevant to Health Maintenance Insurance MEDICARE [facility] Address: [address] [address] [place] [address] [facility] [address] MEDICARE [facility] Address: [address] [address] [place] [address] [employer] SENIOR SUPPLEMENT Care Teams Adjuster Relationship Specialty Start Date End Date Vikash Sampson MD [address] [place] [id number] PCP - General Family Medicine 10/01/24 Cha Ozuna MD [address] [address] Referring Physician Gynecology 07/14/20
--- OUTSIDE RECORDS SUMMARY | 2025-05-12 12:41 | XMS_ITS | Clinical Summary ---
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
--- OUTSIDE RECORDS SUMMARY | 2025-05-12 12:41 | XMS_ITS | Clinical Summary ---
Author Organization [facility] Address [address] [place] [address] Care Team Providers Care Associate Director Data & Analytics Name Role Phone Cha Ozuna MD Unavailable [phone] Vikash Sampson MD Primary Care Provider Allergies No known active allergies Medications ergocalciferol [...] Noted Date Diagnosed Date Abnormal mammogram 07/31/2020 Surgical History Surgery Date Site/Laterality Comments REDUCTION [...] on file Legal Sex Female 1:23 PM MAINTENANCE CLERK Gender Identity Female 07/29/2020 11:58 AM CDT [...] Read Routine (OP Routine) 10/01/2024 1:25 PM MAINTENANCE CLERK Screening mammogram, encounter for from Last 3 Months or Most Recently Relevant to Health Maintenance Results * Screening Mammogram Bilateral W Teresita (10/01/2024 1:25 PM MAINTENANCE CLERK) Anatomical Region Laterality Modality Breast Bilateral Mammography Impressions 10/01/2024 3:03 PM MAINTENANCE CLERK BI-RADS ATLAS category (overall): 2 - Benign There is no mammographic evidence of malignancy. A 1 year screening mammogram is recommended. The patient has been or will be contacted. We recommend annual screening mammography for women at average risk of breast cancer beginning at age 40, based on guidelines of the [employer] (ACR Practice Parameter for the Performance of Screening and Diagnostic Mammography) and [employer]stetricians and Gynecologists. For women with and elevated risk of breast cancer, please refer to the ACR Practice Parameter for specific screening recommendations. The patient will be entered into a reminder system with a target due date of 1 year for her next screening exam. Narrative 10/01/2024 3:03 PM MAINTENANCE CLERK Screening Mammogram Bilateral W Teresita: 10/01/24 The [...] Recently Relevant to Health Maintenance Insurance MEDICARE [facility] SENIOR [address]PPLEMENT [address] [place], [place] [address]O MEDICARE [place] [id number] [employer] SENIOR SUPPLEMENT Care Teams Associate Director Data & Analytics Relationship Specialty Start Date End Date Vikash Sampson MD [address] [place] [id number] PCP - General Family Medicine 10/01/24 Cha Ozuna MD [address] [address] Referring Physician Gynecology 07/14/20
--- OUTSIDE RECORDS SUMMARY | 2025-05-12 12:41 | XMS_ITS | Clinical Summary ---
Author Organization [facility] Address [facility] [place] [address] Care Team Providers Care Chief Cardiopulmonary Technologist Name Role Phone Nanette Agosto [facility] Primary Care Provider + Allergies No [...] Comments Blood Pressure 128/74 12/27/2022 9:20 AM PATTERN ILLUSTRATOR Pulse 68 12/27/2022 9:20 AM PATTERN ILLUSTRATOR Temperature 36.4 C (97.6 F) 12/27/2022 9:00 AM PATTERN ILLUSTRATOR Respiratory Rate 22 12/27/2022 9:20 AM PATTERN ILLUSTRATOR Oxygen Saturation 93% 12/27/2022 9:20 AM PATTERN ILLUSTRATOR Inhaled Oxygen Concentration - - Weight 104.3 kg (230 lb) 12/21/2022 11:46 AM PATTERN ILLUSTRATOR Height 171.5 cm (5' 7.5) 12/21/2022 11:46 AM CS T Body Mass Index 35.49 12/21/2022 11:46 AM PATTERN ILLUSTRATOR Plan of Treatment Health Maintenance Due Date Last Done Comments Hepatitis C 1973 Mammogram Screening 1995 Annual Medicare Wellness Visit 2020 Dexa Scan (General) 2020 COVID-19 Vaccine ( season) 2024 08/11/2022, 03/01/2022, 02/28/2022, Additional history exists DTaP, Tdap and Td Vaccines (2 - Td or Tdap) 06/09/2026 06/09/2016 RSV Immunization or 60+ Years (1 - 1-dose 75+ series) 2030 Colorectal Cancer Screening Colonoscopy (10 Years) 12/27/2032 12/27/2022, 12/27/2022 Zoster Vaccines Completed 07/15/2021, 04/14, 09/23/2015 Pneumococcal Vaccine: 50+ Years Completed 07/12/2022, 03/26/2021 Meningococcal B Vaccine Aged Out No l onger eligible based on patient's age to complete this topic Meningococcal Vaccine Aged Out No jorge nate eligible based on patient's age to complete this topic RSV Immunizations Under 20 Months Aged Out No longer eligible based on patient's age to complete this topic Medical Devices Implanted Type Area Electric Motor Repairman Device Identifier Shelf Expiration Date Model / Serial / Lot Hip Procedures Procedure Name Priority Date/Time Associated Diagnosis Comments COLONOSCOPY Routine 12/27/2022 7:23 AM PATTERN ILLUSTRATOR from Last 3 Months or Most Recently Relevant to Health Maintenance Insurance MEDICARE [employer] Care Teams Chief Cardiopulmonary Technologist Relationship Specialty Start Date End Date Nanette Agosto, X RAY TECH- [address] [place] [phone] PCP - General NURSE PRACTITIONER 12/27/22
[2025-05-12 12:57] VITALS: BP 147/94; PULSE 103; RESP 18; TEMP 36.8; O2SAT 98
--- OUTSIDE RECORDS SUMMARY | 2025-05-12 16:31 | XMS_ITS | Referral Summary ---
Author Organization [facility] Address Formerly [facility] [place] [address] Care Team Providers Care Foil Spinner Name Role Phone Cha Ozuna MD Unavailable [phone] Vikash Sampson MD Primary Care Provider [phone] Allergies No known active allergies Medications ergocalciferol [...] on file Legal Sex Female 1:23 PM AMBULANCE OFFICER Gender Identity Female 07/29/2020 11:58 AM CDT [...] Read Routine (OP Routine) 10/01/2024 1:25 PM AMBULANCE OFFICER Screening mammogram, encounter for from Last 3 Months or Most Recently Relevant to Health Maintenance Results * Screening Mammogram Bilateral W Teresita (10/01/2024 1:25 PM AMBULANCE OFFICER) Anatomical Region Laterality Modality Breast Bilateral Mammography Impressions 10/01/2024 3:03 PM AMBULANCE OFFICER BI-RADS ATLAS category (overall): 2 - Benign There is no mammographic evidence of malignancy. A 1 year screening mammogram is recommended. The patient has been or will be contacted. We recommend annual screening mammography for women at average risk of breast cancer beginning at age 40, based on guidelines of the [employer] [place] [employer] (ACR Practice Parameter for the Performance of Screening and Diagnostic Mammography) and [employer] [place] [employer]ians and Gynecologists. For women with and elevated risk of breast cancer, please refer to the ACR Practice Parameter for specific screening recommendations. The patient will be entered into a reminder system with a target due date of 1 year for her next screening exam. Narrative 10/01/2024 3:03 PM AMBULANCE OFFICER Screening Mammogram Bilateral W Teresita: 10/01/24 The [...] Recently Relevant to Health Maintenance Insurance MEDICARE [facility] Address: [address] [address] [place] [address] [facility] [address] MED[address]ARE [facility] Address: [address] [address] [place] [address] [employer] SENIOR SUPPLEMENT Care Teams Foil Spinner Relationship Specialty Start Date End Date Vikash Sampson MD [address] [place] [id number] PCP - General Family Medicine 10/01/24 Cha Ozuna MD [address] [address] Referring Physician Gynecology 07/14/20
--- OUTSIDE RECORDS SUMMARY | 2025-05-12 16:31 | XMS_ITS | Clinical Summary ---
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
--- OUTSIDE RECORDS SUMMARY | 2025-05-12 16:31 | XMS_ITS | Clinical Summary ---
Author Organization [facility] Address [address] [place] [address] Care Team Providers Care Medical Technologist Name Role Phone Cha Ozuna MD Unavailable [phone] Vikash Sampson MD Primary Care Provider [phone] Allergies No known active allergies Medications ergocalciferol [...] on file Legal Sex Female 1:23 PM DATA INTEGRATION ANALYST Gender Identity Female 07/29/2020 11:58 AM CDT [...] Read Routine (OP Routine) 10/01/2024 1:25 PM DATA INTEGRATION ANALYST Screening mammogram, encounter for from Last 3 Months or Most Recently Relevant to Health Maintenance Results * Screening Mammogram Bilateral W Teersita (10/01/2024 1:25 PM DATA INTEGRATION ANALYST) Anatomical Region Laterality Modality Breast Bilateral Mammography Impressions 10/01/2024 3:03 PM DATA INTEGRATION ANALYST BI-RADS ATLAS category (overall): 2 - Benign There is no mammographic evidence of malignancy. A 1 year screening mammogram is recommended. The patient has been or will be contacted. We recommend annual screening mammography for women at average risk of breast cancer beginning at age 40, based on guidelines of the [employer] [employer] (ACR Practice Parameter for the Performance of Screening and Diagnostic Mammography) and [employer] Gynec[employer]. For women with and elevated risk of breast cancer, please refer to the ACR Practice Parameter for specific screening recommendations. The patient will be entered into a reminder system with a target due date of 1 year for her next screening exam. Narrative 10/01/2024 3:03 PM DATA INTEGRATION ANALYST Screening Mammogram Bilateral W Teresita: 10/01/24 The [...] Recently Relevant to Health Maintenance Insurance MEDICARE [facility] [address] [place], [place] [address]O MEDICARE [place] [id number] [employer] SENIOR SUPPLEMENT Care Teams Medical Technologist Relationship Specialty Start Date End Date Vikash Sampson MD [address] [place] [id number] PCP - General Family Medicine 10/01/24 Cha Ozuna MD [address] [address] Referring Physician Gynecology 07/14/20
--- OUTSIDE RECORDS SUMMARY | 2025-05-12 16:31 | XMS_ITS | Clinical Summary ---
Author Organization [facility] Address [facility] [place] [address] Care Team Providers Care Edge Inker Uppers Name Role Phone Nanette Agosto [facility] Primary Care Provider + Allergies No known [...] Comments Blood Pressure 128/74 12/27/2022 9:20 AM BUSINESS SYSTEMS TECHNICIAN Pulse 68 12/27/2022 9:20 AM BUSINESS SYSTEMS TECHNICIAN Temperature 36.4 C (97.6 F) 12/27/2022 9:00 AM BUSINESS SYSTEMS TECHNICIAN Respiratory Rate 22 12/27/2022 9:20 AM BUSINESS SYSTEMS TECHNICIAN Oxygen Saturation 93% 12/27/2022 9:20 AM BUSINESS SYSTEMS TECHNICIAN Inhaled Oxygen Concentration - - Weight 104.3 kg (230 lb) 12/21/2022 11:46 AM BUSINESS SYSTEMS TECHNICIAN Height 171.5 cm (5' 7.5) 12/21/2022 11:46 AM CS T Body Mass Index 35.49 12/21/2022 11:46 AM BUSINESS SYSTEMS TECHNICIAN Plan of Treatment Health Maintenance Due Date [...] this topic Medical Devices Implanted Type Area Group Leader Device Identifier Shelf Expiration Date Model / Serial / Lot Hip Procedures Procedure Name Priority Date/Time Associated Diagnosis Comments COLONOSCOPY Routine 12/27/2022 7:23 AM BUSINESS SYSTEMS TECHNICIAN from Last 3 Months or Most Recently Relevant to Health Maintenance Insurance MEDICARE [employer] Care Teams Edge Inker Uppers Relationship Specialty Start Date End Date Nanette Agosto, IMAGE SCIENTIST- [address] [place] [phone] PCP - General NURSE PRACTITIONER 12/27/22
--- NOTE | 2025-05-12 17:35 | ED_ITS ---
HPI - Back Pain/Injury General Chief Complaint: Back Pain/Injury Stated Complaint: Left flank pain-no kidney stone, sent by PMD Time Seen by Provider: 05/12/25 16:18 History of Present Illness HPI Narrative: 69-year-old female presenting to the emergency department for evaluation of lowe r thoracic flank pain radiating towards her left side. She saw her primary care provider about this several days ago and received medications for treatment as well as urinalysis that was obtained. Concern for musculoskeletal pathology and she was put on some Celebrex and tramadol but she states that her symptoms are not improving. She called her doctor who ordered a CT scan with and without con trast of the abdomen pelvis for other potential etiologies in the abdomen, flanks such as a stone, renal injury or issue. This was done yesterday negative. Patient called her primary doctor who said they did have anything else for her to try and she came to the ER. Patient is not any acute distress, pain comes and goes, denies any rashes or lesions around the left-sided thorax when this occurred. No fever, chills, diarrhea, chest pain shortness a breath. Denies any injuries. Related Data Home Medications ?Medication ?Instructions ?Recorded ?Confirmed ?Last Taken ?Type cetirizine 10 mg capsule (Zyrtec) 10 mg PO DAILY PRN Sinus Symptoms 04/08/22 05/07/25 04/23/22 History estradiol 0.5 mg tablet 0.5 tablet PO DAILY 04/08/22 05/07/25 04/23/22 History magnesium oxide 400 mg PO DAILY 04/08/22 05/07/25 04/19/22 History medroxyprogesterone 2.5 mg tablet 1 tablet PO DAILY 04/08/22 05/07/25 04/24/22 History cholecalciferol (vitamin D3) 125 125 mcg PO DAILY 12/22/23 05/07/25 Unknown History mcg (5,000 unit) capsule omega 2-awa-huf-fish oil 100 1 cap PO BID 12/22/23 05/07/25 Unknown History mg-160 mg-1,000 mg capsule (Fish Oil) Allergies Allergy/AdvReac Type Severity Reaction Status Date / Time No Known Allergies Allergy Verified 05/07/25 13:41 Review of Systems Review of Systems: As reviewed above in HPI [facility] Past Medical History Medical History Morbid obesity due to excess calories Elevated liver enzymes 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 Left hip in 2016 History of toe surgery [facility], 2019, Dr. Steven Family History Family History Mother Hypertension Father , age 80 of cerebral hemorrhage Cerebrovascular accident Grandparent Carcinoma of colon Sibling No problems noted. Other Family history of arthritis Family history of malignant neoplasm Social History Social History Smoking status: Never smoker Alcohol intake: current Alcohol use details: 1 per month Substance use: never Substance use type: does not use Do You Feel Safe in your Home?: Yes Lack of Transportation: No Lack of Food: Never True Current Housing: I Have Housing Concerned About Future Housing: No Difficulty Paying Gas/Electric Bills: No Difficulty Paying for Meds: No Currently Unemployed: No Education: Bachelor's Degree Difficulty w/ Childcare or Family Care: No Living arrangements: with family Additional [facility] arrangements comments[facility] Occupation/Education: retired Additional occupation/education comments: 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 Mucous membranes moist. NECK: Supple. CHEST: [Clear to auscultation. No respiratory distress.] HEART: [Regular rate and rhythm]. No murmur heard. [Normal peripheral pulses.] ABDOMEN: [Soft, nondistended], [nontender], [No rigidity or guarding] reproducible tenderness along the left-sided lower thoracic flank going to the left side but no overlying skin changes or rashes or lesions. No midline back pain. EXTREMITIES: Normal range of motion. [No edema.] SKIN: Warm, dry, no rash. NEURO: [No focal deficits]. Alert and oriented [x3.] PSYCH: [Normal mood and affect.] Course Vital Signs Vital signs: Vital Signs Temperature 36.8 C 05/12/25 12:57 Pulse Rate 103 H 05/12/25 12:57 Respiratory Rate 18 05/12/25 12:57 Blood Pressure 147/94 H 05/12/25 12:57 Pulse Oximetry 98 05/12/25 12:57 Oxygen Delivery Room Air 05/12/25 12:57 Temperature 36.8 C 05/12/25 12:57 Pulse Rate 103 H 05/12/25 12:57 Respiratory Rate 18 05/12/25 12:57 Blood Pressure 147/94 H 05/12/25 12:57 Pulse Oximetry 98 05/12/25 12:57 Oxygen Delivery Room Air 05/12/25 12:57 MDM - Back Pain/Injury MDM Narrative Medical decision making narrative: 69-year-old female presenting to the emergency department for evaluation of left flank pain. She saw her primary doctor who believes this is muscular in nature and provided her tramadol and Celebrex which she has been taking without any significant relief. She has also tried some topical therapies and CBD oils which do help. She got a CT scan of the abdomen pelvis with and without contrast to further evaluate on outpatient basis which was done yesterday and read and interpreted as negative. When she called her doctor for next recommendations her PCP did not have any other recommendations and so she came to the emergency department. Patient is not any acute distress, well-appearing and not ill. Reproducible pain palpable on examination the left flank and left lower thoracic region but no overlying skin changes. Symptoms do sound muscular in nature specially with the reproducible pain and response to topical therapies. The CT scan was reviewed from yesterday with and without contrast and there are no appreciable abnormalities or kidney stones or any kind of pathology that would explain her symptomatology. Urinalysis done previously also negative and she is not have any urinary issues. Patient does not appear to have any emergent or urgent concerns based on HPI and examination, MSE completed. Discussed next step for the patient and she would like to try some anti-inflammatory measures such as steroids and would be interested in referral to a powder coat painter. She was given 10 mg of IM Decadron and IM Dilaudid for analgesia and a refill of her tramadol was sent to her pharmacy. She will be referred to pain management as a next step and given return precautions. Patient comfortable with the plan and she was safely discharge. Medical Records Attestation: I reviewed the patient's medical records. Imaging Data Attestation: I personally reviewed and interpreted this imaging study as follows: Discharge Plan Discharge Clinical Impression: Abdominal wall pain in left flank Patient Disposition: Home Condition: Stable Instructions: Antibiotic Form, Flank Pain (ED) Additional Instructions: Your CT scan and labs were reviewed from previous and no identifiable lesions or concerning findings that need any urgent or emergent attention however your pain is still unexplained and we can treat that with a course of anti-inflammatory measures. We gave you doses here in the emergency department and will be sending home with prescriptions for steroids and refill of your pain medicine while you explore outpatient options. Pain management is the next option that I would pursue in addition to reconvene with your primary care provider for options. Return with any worsening symptoms, new developing concerns such as chest discomfort, difficulty breathing, fevers, inability urinate, inability to ambulate or any other concerns. Patient Language: Hungarian Prescriptions: New methocarbamol 750 mg tablet 750 mg PO TID PRN (Reason: pain) Qty: 20 0RF prednisone 50 mg tablet 50 mg PO DAILY 5 Days Qty: 5 0RF tramadol 50 mg tablet 50 mg PO Q6H PRN (Reason: pain) Qty: 14 0RF No Action cholecalciferol (vitamin D3) 125 mcg (5,000 unit) capsule 125 mcg PO DAILY Fish Oil 100-160-1,000 mg capsule 1 cap PO BID celecoxib 200 mg capsule 200 mg PO DAILY Qty: 100 1RF losartan 50 mg tablet 50 mg PO QAM Qty: 100 1RF omeprazole 40 mg capsule,delayed release(DR/EC) 40 mg PO DAILY Qty: 100 1RF tramadol 50 mg tablet 50 mg PO Q6H PRN (Reason: pain) Qty: 10 0RF estradiol 0.5 mg tablet 0.5 tablet PO DAILY medroxyprogesterone 2.5 mg tablet 1 tablet PO DAILY Zyrtec 10 mg Capsule 10 mg PO DAILY PRN (Reason: Sinus Symptoms) magnesium oxide 400 mg magnesium Capsule 400 mg PO DAILY hydrochlorothiazide 12.5 mg capsule 12.5 mg PO QAM Qty: 90 1RF Follow-up/Referrals: Vikash Sampson MD [Primary Care Provider] - Andrew Bass MD [Physician] - 1 Week (Persistent flank pain) Time of Disposition: 17:43
[2025-05-12] MEDS: dexAMETHasone SOD PHOS INJ 10 MG/ML 1 ML VIAL IM (18:05)
[2025-05-12] MEDS: HYDROmorphone HCL INJ (*CRX) 2 MG/ML VIAL 0.5 MG IM (18:06)
== END 2025-05-12 18:20 | disposition home or self-care (01) ==
PROVIDERS: Emergency Provider Student in an Organized Health Care Education/Training Program; PCP Family Medicine
DX: R10.9 Unspecified abdominal pain (principal)
CPT/HCPCS: 96372; 99284; J1100; J1171

== ENCOUNTER 2025-09-05 11:54 | Outpatient (CLI) | payer MEDICARE, SELFPAY ==
--- NOTE | ~2025-09-05 | XR_ITS ---
EXAMINATION: XR chest 2V, 09/05/2025 12:10 CDT HISTORY: R06.02 - Shortness of breath, hx of high bp COMPARISON: No comparisons available. Technique: 2 views obtained. Findings: There is a small left basilar infiltrate with minimal right lower lobe infiltrate No pneumothorax. Heart is normal size. Mediastinal and hilar contours are within normal limits. Bony thorax no acute abnormality. Impression: Bilateral pneumonia Reviewed, dictated and finalized at location P. Impression: Bilateral pneumonia
== END 2025-09-05 11:55 | disposition home or self-care (01) ==
PROVIDERS: PCP Family Medicine
DX: J18.9 Pneumonia, unspecified organism (principal)
CPT/HCPCS: 71046